=== PATIENT | male | born 1950 | race Caucasian/White ===

== ENCOUNTER → 2016-09-27 | Outpatient (CLI) | payer MEDICARE, OTHER ==
[2016-06-01 03:52] VITALS: BP 160/80
[~2016-09-27] MED LIST: ABIR250T PO; CALC1TAB75 PO; CHOL2000 PO; CIPR500T94 PO; DENO120V SQ; Fentanyl TD; GABA-585 PO; IOHEXOL 240 MG/ML 50ML VIAL. PO ONE; IOHEXOL 300 MG/ML 100ML VIAL. IV ONE; OXYC10TA PO; PRED2.5T PO; PROM25TA10 PO; Polyethylene Glycol 3350 PO; SENN8.8S4 PO; TAMS0.4C97 PO; [UNRECOGNIZED DRUG - CODE] IM
--- NOTE | 2016-09-27 10:07 | RAD ---
EXAM: Chest, abdomen and pelvis CT with intravenous contrast. HISTORY: Prostate cancer restaging. TECHNIQUE: Computed tomographic images of the chest, abdomen and pelvis were obtained following the administration of 30 cc Omnipaque 240 intravenous contrast. One or more of the following individualized dose reduction techniques were utilized for this examination: 1. Automated exposure control. 2. Adjustment of the mA and/or kV according to patient size. 3. Use of iterative reconstruction technique. COMPARISON: 05/20/2016. FINDINGS: Chest: There is a small left pleural effusion and trace right pleural effusion, both of which are new compared to the prior study. The heart is normal in size. There is coronary artery atherosclerosis. There is a prominent precarinal lymph node measuring 1.4 cm, minimally increased compared to the prior study. No hilar lymphadenopathy is seen. There is no pneumothorax. There is right posterior medial atelectasis likely due to prominent thoracic endplate osteophytes. No suspicious pulmonary nodule is seen. There is diffuse sclerotic osseous metastatic disease.. There is a marked to severe wedge compression fracture of T12, likely pathologic in etiology. Abdomen and pelvis: There is diffuse hepatic metastatic disease. The largest lesion measures 2.8 cm within the right hepatic lobe. The gallbladder, pancreas and spleen are unremarkable. There is a left adrenal mass measuring 3.2 cm, increased compared to the prior study and likely metastatic in etiology. There are bilateral nephroureteral stents. There has been slight interval decrease in previously demonstrated left hydronephrosis compared to the prior study. There is persistent bilateral urothelial thickening. The bladder is decompressed. There is no evidence of bowel obstruction. There is colonic diverticulosis without diverticulitis. There is retroperitoneal lymphadenopathy, increased compared to the prior study. There is also lymphadenopathy throughout the root of the mesentery, increased compared to the prior study. The largest lymph node conglomerate within the mesentery measures 4.0 cm. There is stranding throughout the retroperitoneum with encasement of the ureters and there is diffuse mesenteric stranding. There is diffuse osseous metastatic disease. There is multilevel degenerative change throughout the spine. IMPRESSION: 1. Diffuse hepatic metastatic disease, consistent with progressive malignancy. 2. Extensive retroperitoneal and mesenteric lymphadenopathy, also metastatic and increased compared to the prior study. 3. Diffuse sclerotic osseous metastatic disease. There is a moderate to severe T12 compression fracture which is similar compared to the prior study and possibly pathologic in etiology. 4. Slight interval decrease in left hydronephrosis status post bilateral nephroureteral stent placement. There is persistent stranding with suspected encasement of the ureters due to metastatic disease. 5. Small left and trace right pleural effusions, new compared to the prior study. 6. Minimal interval increase in a nonspecific precarinal lymph node measuring 1.4 cm. 7. Left adrenal metastasis, increased compared to the prior study.
== END | disposition home or self-care (01) ==
LOC: CT 07:20
PROVIDERS: ATTEND Internal Medicine Hematology & Oncology
DX: C61 Malignant neoplasm of prostate (principal)
CPT/HCPCS: 71260; 74177; Q9966; Q9967

== ENCOUNTER 2016-10-01 08:24 | Outpatient (CLI) | payer MEDICARE, OTHER ==
[~2016-10-01] VITALS: Ht 172.7 cm; Wt 80.7 kg
[~2016-10-01 08:24] MED LIST changes: -IOHEXOL 240 MG/ML 50ML VIAL. PO ONE; -IOHEXOL 300 MG/ML 100ML VIAL. IV ONE
[2016-10-01] MEDS ORDERED: OXYC40TA21 PO (08:44)
[2016-10-01] MEDS ORDERED: FURO20TA3 PO (08:44)
[2016-10-01] MEDS ORDERED: METO5TAB PO (08:44)
[2016-10-01] MEDS ORDERED: LISI10TA2 PO (08:44)
[2016-10-01] MEDS ORDERED: [UNRECOGNIZED DRUG - OTHER] PO (08:44)
[2016-10-01] MEDS ORDERED: CLIN300C86 PO (08:44)
[2016-10-01 09:04] VITALS: BP 150/79
[2016-10-01 09:22] LABS: BASO % 1 % (0-3); EOS % 4 % (0-3); HEMATOCRIT 33.1 % (39.0-53.0); HEMOGLOBIN 11.4 g/dL (13.0-17.5); LYMPH # 0.6 x10^3/uL (1.0-4.8); LYMPH % 18 % (24-48); MEAN CORPUSCULAR HEMOGLOBIN 30 pg (25-35); MEAN CORPUSCULAR HGB CONC 34 g/dL (31-37); MEAN CORPUSCULAR VOLUME 88 fL (79-100); MONO % 12 % (0-9); NEUT % 66 % (31-73); PLATELET COUNT 122 x10^3/uL (140-400); RED BLOOD COUNT 3.74 x10^6/uL (4.30-5.70); RED CELL DISTRIBUTION WIDTH 15.1 % (11.5-14.5); WHITE BLOOD COUNT 3.5 x10^3/uL (4.0-11.0)
[2016-10-01 09:31] LABS: INR 1.1 (0.8-1.1); PROTHROMBIN TIME PATIENT 13.3 SEC (11.7-14.0)
[2016-10-01] MEDS ORDERED: LIDOCAINE 1%/EPI 1:100,000 20 ML VIAL. ONE (09:48)
[2016-10-01] MEDS ORDERED: HEPARIN PF 500 UNIT/5 ML DISP.SYRIN. IV ONE ×2 (09:48→10:30)
[2016-10-01] MEDS ORDERED: VANCOMYCIN 1GM IVPB FOR OMNI 250 ML ONE (09:48)
[2016-10-01] MEDS ORDERED: CLINDAMYCIN 600MG PREMIX 50 ML IV ONE ×2 (10:05→10:30)
[2016-10-01] MEDS ORDERED: FENTANYL PF 100 MCG/2 ML VIAL. ONE ×2 (10:05→10:34)
[2016-10-01] MEDS ORDERED: MIDAZOLAM HCL 2 MG/2 ML VIAL. ONE ×2 (10:06→10:34)
[2016-10-01] MEDS ORDERED: LIDOCAINE 1%/EPI 1:100,000 20 ML VIAL. IJ ONE (10:30)
[2016-10-01] MEDS ORDERED: MIDAZOLAM HCL 2 MG/2 ML VIAL. IV ONE (10:30)
[2016-10-01] MEDS ORDERED: FENTANYL PF 100 MCG/2 ML VIAL. IV ONE (10:30)
[2016-10-01] MEDS ORDERED: VANCOMYCIN 1GM IVPB FOR OMNI 250 ML IV ONE (10:30)
[2016-10-01 10:46] VITALS: BP 125/64
--- NOTE | 2016-10-01 11:05 | PDOC ---
MODERATE SEDATION ASSESSMENT RISKS/ALTERNATIVES Risks/Alternatives Risks and alternatives of this type of sedation and procedure discussed with: RISK/ALTERNATIVES: Patient H & P ON CHART H & P H & P on chart and reviewed for co-morbid conditions and appropriate labs. H&P ON CHART: Yes STATUS PREG STATUS ASSESSED: N/A MEDS/ALLERGIES REVIEWED Meds/Allergies Reviewed Medications and Allergies including time and route of recently administered narcotics and sedatives. MEDS/ALLERGIES REVIEWED: Yes ASA RATING ASA RATING: III AIRWAY ASSESSMENT Airway Assessment Airway patency, oral function limitations, presence of caps, crowns, dentures, partials, and ability to extend neck assessed. AIRWAY ASSESSMENT: Yes MALLAMPATI SCORE MALLAMPATI SCORE: II PRE-SEDATION ASSESSMENT PRE-SEDATION ASSESSMENT: Yes TUAN HERNANDEZ MD Oct 01, 2016 11:05
--- NOTE | 2016-10-01 11:07 | PDOC1 ---
History and Physical Date of Procedure Date of Admission 10/01/16 Procedure Procedure Sono/fluoro guided Power Port insertion Indication Indication Metastatic prostate cancer---Port requested for chemotx Past Medical History Past Medical History See Nursing Pre procedure PMH Past Surgical History Past Surgical History See Nursing Pre procedure PSH Current Medications Current Medications Current Medications Heparin Sodium (Porcine) (Hep Lock Adult) 500 unit STK-MED ONCE IV ; Start 10/01 at 09:48; Stop 10/01/16 at 09:49; Status DC Lidocaine/ Epinephrine 20 ml 20 ml STK-MED ONCE .ROUTE ; Start 10/01/16 at 09:48 ; Stop 10/01/16 at 09:49; Status DC Heparin Sodium/ Sodium Chloride 500 ml @ As Directed STK-MED ONCE .ROUTE ; Start 10/01/16 at 09:48; Stop 10/01/16 at 09:49; Status DC Vancomycin HCl 250 ml @ As Directed STK-MED ONCE .ROUTE ; Start 10/01/16 at 09: 48; Stop 10/01/16 at 09:49; Status DC Clindamycin Phosphate (Cleocin 600 Mg Premix) 50 ml @ As Directed STK-MED ONCE IV ; Start 10/01/16 at 10:05; Stop 10/01/16 at 10:06; Status DC Fentanyl Citrate (Fentanyl 2ml Vial) 100 mcg STK-MED ONCE .ROUTE ; Start at 10:05; Stop 10/01/16 at 10:06; Status DC Midazolam HCl (Versed) 2 mg STK-MED ONCE .ROUTE ; Start 10/01/16 at 10:06; Stop 10/01/16 at 10:07; Status DC Fentanyl Citrate (Fentanyl 2ml Vial) 100 mcg STK-MED ONCE .ROUTE ; Start at 10:34; Stop 10/01/16 at 10:35; Status DC Midazolam HCl (Versed) 2 mg STK-MED ONCE .ROUTE ; Start 10/01/16 at 10:34; Stop 10/01/16 at 10:35; Status DC Heparin Sodium/ Sodium Chloride 1,000 unit 1X ONCE IART Last administered on t 10:30; Start 10/01/16 at 10:30; Stop 10/01/16 at 10:52; Status DC Midazolam HCl (Versed) 2 mg 1X ONCE IV Last administered on 10/01/16 10:30; Start 10/01/16 at 10:30; Stop 10/01/16 at 10:52; Status DC Fentanyl Citrate (Fentanyl 2ml Vial) 100 mcg 1X ONCE IV Last administered on 10:30; Start 10/01/16 at 10:30; Stop 10/01/16 at 10:52; Status DC Heparin Sodium (Porcine) 500 unit 500 unit 1X ONCE IV ; Start 10/01/16 at 10:30 ; Stop 10/01/16 at 10:52; Status DC Clindamycin Phosphate (Cleocin 600 Mg Premix) 50 ml @ 100 mls/hr 1X ONCE IV Last administered on 10/01/16 10:25; Start 10/01/16 at 10:30; Stop 10/01/16 at 10:59; Status DC Lidocaine/ Epinephrine 20 ml 20 ml 1X ONCE IJ Last administered on 10/01/16 10:30; Start 10/01/16 at 10:30; Stop 10/01/16 at 10:52; Status DC Vancomycin HCl 250 ml @ 250 mls/hr 1X ONCE IV Last administered on 10/01/16 10:47; Start 10/01/16 at 10:30; Stop 10/01/16 at 11:29 Active Scripts Active [Polyethylene Glycol 3350] 17 GM Packet 17 Gm PO BID Reported Furosemide 20 Mg Tablet 20 Mg PO DAILY Lisinopril 10 Mg Tablet 10 Mg PO DAILY Metoclopramide Hcl 5 Mg Tablet 5 Mg PO TID PRN PRN [floragen probiotic] PO DAILY 30 Days Clindamycin Hcl 300 Mg Capsule 300 Mg PO TID 7 Days Oxycontin (Oxycodone HCl) 40 Mg Tab.er.12h 40 Mg PO BID Calcium 600 + Vit D 200 Tablet (Calcium Carbonate/Vitamin D3) 1 Each Tablet 1 Each PO DAILY Vitamin D (Cholecalciferol (Vitamin D3)) 2,000 Unit Capsule 5,000 Unit PO DAILY Xgeva (Denosumab) 120 Mg/1.7 Ml Vial 120 Mg SQ Q4WK Lupron Depot (Leuprolide Acetate) 11.25 Mg Syringekit 11.25 Mg IM Allergies Allergies: Coded Allergies: acetaminophen (Unverified Allergy, Intermediate, redness and itching, ) Physical Exam Vital Signs Vital Signs Date Time Temp Pulse Resp B/P Pulse Ox O2 Delivery O2 Flow Rate FiO2 10/01/16 10:46 61 26 100 Nasal Cannula 2.0 10/01/16 09:04 98.3 150/79 98.3 Lungs: Clear to auscultation Heart: Regular rate Psych/Mental Status: Mental status NL Assessment Assessment Prostate cancer, with extensive bone mets Problems: Plan Plan Power Port insertion for chemotx TUAN HERNANDEZ MD Oct 01, 2016 11:07
--- NOTE | 2016-10-01 11:10 | PDOC ---
Exam Staff Reporter Staff Reporter Nasrin Head Bookkeeper Head Bookkeeper Jesse Cain Pre-Procedure Diagnosis Pre-Procedure Diagnosis Metastatic prostate cancer Post-Procedure Diagnosis Post-Procedure Diagnosis Same Procedure Performed Procedure Performed Image guided Power Port insertion Type of Anesthesia Type of Anesthesia Local + Mod sedation Estimated Blood Loss EBL: Minimal Drain/Tubes Drains/Tubes 8F rt IJ tunneled Power Port Condition of Patient Condition of Patient Stable. No apparent complication. Disposition Disposition Home from [facility] post recovery, if no problems. F/u with Dr Davies. OK to use Power Port. Full report to follow. TUAN HERNANDEZ MD Oct 01, 2016 11:10
[2016-10-01 11:25] VITALS: BP 133/70
[2016-10-01 11:40] VITALS: BP 142/73
[2016-10-01 11:54] VITALS: BP 148/89
[2016-10-01 12:05] VITALS: BP 139/72
--- NOTE | 2016-10-01 14:16 | RAD ---
Ultrasound and fluoroscopy guided right IJ power port insertion Indication: 66-year-old male with prostate carcinoma and extensive, widespread blastic osseous metastases. Power port insertion requested by oncology for chemotherapy. Fluoroscopy time: 1.6 minutes Kerma-area product: 4 Gycm2 Moderate sedation: 36 minutes moderate sedation was provided utilizing a total of 3 mg Versed and 150 mcg fentanyl, IV. The patient was appropriately monitored by a qualified independent observer throughout the course of moderate sedation. Antibiotic: A single dose of Clindamycin was administered within 1 hour of the procedure start time. Clindamycin was selected for additional prophylactic antibiotic coverage since the patient was already receiving scheduled by mouth clindamycin. Sterility: All elements of maximal sterile barrier technique, including the use of a cap, mask, sterile gown, sterile gloves, large sterile sheet, appropriate hand hygiene, and 2% chlorhexidine for cutaneous antisepsis (or acceptable alternative antiseptic per current guidelines) were utilized. Procedure: Informed consent was obtained from the patient. He was placed supine on the angiography table. Preliminary ultrasound examination of right neck revealed wide patency of right internal jugular vein, which was documented with a single hard copy ultrasound image. Right neck and upper chest were then prepped and draped in the usual sterile fashion, utilizing all elements of maximal sterile barrier technique, as described above. Moderate sedation was provided with IV Versed and fentanyl. 1 g Ancef was given IV, prophylactically. Using aseptic technique and local anesthesia, a small skin incision was made lateral to right internal jugular vein, just above clavicle. Using aseptic technique, local anesthesia, direct ultrasound guidance, and the micropuncture system, successful percutaneous entry was achieved into right internal jugular vein. The right IJ venostomy tract was then dilated and the 8 Welsh catheter from a Bard power port system was easily advanced centrally through an 8.5 Welsh peel-away sheath, and was positioned with this tip at the level of upper right atrium utilizing fluoroscopic guidance. A skin site suitable for placement of the power port body was then selected and marked along upper anterior aspect of right chest, overlying anterior aspect of right second rib. Using aseptic technique and local anesthesia, a horizontally oriented skin incision was made in this location. A subcutaneous chest wall pocket was then created and was packed with vancomycin soaked gauze. A subcutaneous tunnel was then fashioned between the chest wall pocket and the initial supraclavicular incision. The 8 Welsh power port catheter was then pulled through the subcutaneous tunnel from superior to inferior, utilizing the tunneling device provided. The catheter was then trimmed to an appropriate length and was connected to the power port body, which had been previously flushed with, and soaked in, vancomycin solution. The vancomycin soaked gauze was then removed from the chest wall pocket, which was then copiously irrigated with vancomycin solution. The power port body was then easily introduced into the chest wall pocket and was secured in place utilizing two 2-0 Vicryl sutures. The power port was then accessed utilizing a Florez needle, was documented to flush and aspirate normally, and was packed with heparinized saline. The chest incision was then closed with 2-0 Vicryl, 4-0 Vicryl, Steri-Strips, and sterile dressing. The small supraclavicular incision was closed with 4-0 Vicryl, Steri-Strips, and sterile dressing. Patient tolerated the procedure well without apparent complication. Satisfactory position of the power port was confirmed with a single fluoroscopic spot image. Impression: Successful, uneventful ultrasound and fluoroscopy guided placement of right IJ 8 Welsh tunneled power port, as described.
== END 2016-10-01 12:15 | disposition home or self-care (01) ==
LOC: INTRAD 08:24
PROVIDERS: ATTEND Internal Medicine Hematology & Oncology
DX: Z51.11 Encounter for antineoplastic chemotherapy (principal); C61 Malignant neoplasm of prostate; I10 Essential (primary) hypertension; M19.90 Unspecified osteoarthritis, unspecified site
CPT/HCPCS: 36415; 36561; 76937; 77001; 85027; 85610; C1751; C1892; J2250; J3010; J3370; J3490

== ENCOUNTER 2016-10-15 16:02 | Inpatient (IN) | payer MEDICARE, OTHER ==
[~2016-10-15] VITALS: Ht 172.7 cm; Wt 80.5 kg
[~2016-10-15 16:02] MED LIST changes: +CLIN300C86 PO; +FURO20TA3 PO; +LISI10TA2 PO; +METO5TAB PO; +OXYC40TA21 PO; +[UNRECOGNIZED DRUG - OTHER] PO
[2016-10-15] MEDS ORDERED: IV NORMAL SALINE 1000ML BAG 1,000 ML IV ONE ×2 (16:45→18:15)
[2016-10-15] MEDS ORDERED: IBUPROFEN 600 MG TABLET. PO ONE (16:45)
--- NOTE | 2016-10-15 16:46 | RAD ---
Portable chest, 10/15/2016, 4:39 PM: History: Fever, weakness A right Port-A-Cath extends into the superior vena cava. The heart size and pulmonary vascularity are normal. No pulmonary infiltrates are seen. There is no evidence of pleural fluid. Extensive patchy sclerotic foci are seen in the bones compatible with blastic metastatic disease. The given history is that of prostate cancer. IMPRESSION: 1. A right Port-A-Cath is in satisfactory position. 2. Extensive multifocal blastic osseous metastatic disease. 3. No acute cardiopulmonary abnormality is detected.
[2016-10-15] MEDS ORDERED: 0.9 % SOD CHL for STERILE FIELD 10 ML DISP.SYRIN. ONE (16:47)
[2016-10-15] MEDS ORDERED: MEROPENEM 1 GM in IV NORMAL SALINE 100ML 100 ML IV ONE (17:00)
[2016-10-15] MEDS ORDERED: LIDOCAINE 1% / SOD BICARB 8.4% 20 ML VIAL. IJ ONE (17:00)
[2016-10-15] MEDS ORDERED: VANCOMYCIN 2 GM in IV NORMAL SALINE 500ML BAG 500 ML IV ONE (17:00)
[2016-10-15 17:48] LABS: CALCIUM 8.1 mg/dL (8.5-10.1); CREATININE 1.1 mg/dL (0.7-1.3); POTASSIUM 3.7 mmol/L (3.5-5.1)
[2016-10-15 17:54] LABS: ALBUMIN 2.5 g/dL (3.4-5.0); ALBUMIN/GLOBULIN RATIO 0.8 (1.0-1.7); TOTAL BILIRUBIN 0.6 mg/dL (0.2-1.0); TOTAL PROTEIN 5.6 g/dL (6.4-8.2)
[2016-10-15 18:10] LABS: BASO % 0 % (0-3); EOS % 0 % (0-3); HEMATOCRIT 26.1 % (39.0-53.0); HEMOGLOBIN 8.9 g/dL (13.0-17.5); LYMPH # 0.1 x10^3/uL (1.0-4.8); LYMPH % 25 % (24-48); MEAN CORPUSCULAR HEMOGLOBIN 30 pg (25-35); MEAN CORPUSCULAR HGB CONC 34 g/dL (31-37); MEAN CORPUSCULAR VOLUME 88 fL (79-100); MONO % 69 % (0-9); NEUT % 5 % (31-73); PLATELET COUNT 103 x10^3/uL (140-400); RED BLOOD COUNT 2.97 x10^6/uL (4.30-5.70); RED CELL DISTRIBUTION WIDTH 14.8 % (11.5-14.5)
[2016-10-15 18:26] LABS: INR 1.4 (0.8-1.1); PROTHROMBIN TIME PATIENT 16.4 SEC (11.7-14.0)
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
[2016-10-15] MEDS ORDERED: ONDANSETRON PF 4 MG/2 ML VIAL. IV PRN (18:45)
[2016-10-15] MEDS ORDERED: MORPHINE SULFATE 4 MG/ML DISP.SYRIN. IV PRN (18:45)
[2016-10-15] MEDS ORDERED: IBUPROFEN 600 MG TABLET. PO PRN (18:45)
[2016-10-15 19:10] LABS: WHITE BLOOD COUNT 0.4 x10^3/uL (4.0-11.0)
[2016-10-15 19:36] LABS: BILIRUBIN,URINE NEGATIVE (NEG); GLUCOSE,URINE NEGATIVE (NEG); NITRITE,URINE NEGATIVE (NEG); PH,URINE 6.5; UROBILINOGEN,URINE 0.2 mg/dL (0.2 mg/dL)
[2016-10-15 20:01] LABS: PROTEIN,URINE NEGATIVE (NEG-TRACE)
[2016-10-15 20:03] LABS: BACTERIA,URINE 0 /HPF (0-FEW); SQUAMOUS EPITHELIAL CELL,UR OCC /LPF; WBC,URINE 0 /HPF (0-4)
[2016-10-15 20:45] VITALS: BP 116/64
[2016-10-15] MEDS: VANCOMYCIN PER PHARMACY MC PRN (20:46)
[2016-10-15] MEDS ORDERED: FENTANYL PF 100 MCG/2 ML VIAL. IV PRN (22:30)
[2016-10-15] MEDS ORDERED: FENTANYL 75MCG/HR PATCH. TD ONE (23:00)
[2016-10-15] MEDS: IV NORMAL SALINE 1000ML BAG 1,000 ML IV SCH (23:31)
[2016-10-15] MEDS: MEROPENEM 1 GM in IV NORMAL SALINE 100ML 100 ML IV SCH (23:31)
[2016-10-15 23:59] VITALS: BP 112/54
[2016-10-16] MEDS: IV NORMAL SALINE 1000ML BAG 1,000 ML IV SCH ×3 (01:17→14:37)
[2016-10-16 03:00] VITALS: BP 113/69
[2016-10-16] MEDS: MEROPENEM 1 GM in IV NORMAL SALINE 100ML 100 ML IV SCH ×3 (05:22→21:14)
[2016-10-16] MEDS: VANCOMYCIN 1.25 GM in IV NORMAL SALINE 250ML 250 ML IV SCH ×2 (05:23→17:33)
[2016-10-16 07:00] VITALS: BP 108/53
[2016-10-16] MEDS ORDERED: PRED5TAB (10:17)
[2016-10-16] MEDS ORDERED: DEXA4TAB (10:17)
[2016-10-16] MEDS ORDERED: FENT1PAT19 TD (10:17)
[2016-10-16 11:00] VITALS: BP 123/68
[2016-10-16] MEDS ORDERED: FUROSEMIDE 20 MG TABLET PO PRN (11:15)
[2016-10-16] MEDS ORDERED: METOCLOPRAMIDE 5 MG TABLET PO PRN (11:15)
[2016-10-16] MEDS ORDERED: POLYETHYLENE GLYCOL 3350 17 GM PACKET. PO PRN (11:15)
--- NOTE | 2016-10-16 11:32 | PDOC ---
Infectious Disease Note Vital Sign Vital Signs Vital Signs Date Time Temp Pulse Resp B/P Pulse Ox O2 Delivery O2 Flow Rate FiO2 10/16/16 07:00 97.5 62 14 108/53 96 Room Air 97.5 Labs Lab Laboratory Tests Test 10/15/16 17:20 10/15/16 17:40 10/15/16 19:00 10/15/16 19:15 White Blood Count 0.4x10^3/uL (4.0-11.0) Red Blood Count 2.97x10^6/uL (4.30-5.70) Hemoglobin 8.9g/dL (13.0-17.5) Hematocrit 26.1% (39.0-53.0) Mean Corpuscular Volume 88fL (79-100) Mean Corpuscular Hemoglobin 30pg (25-35) Mean Corpuscular Hemoglobin Concent 34g/dL (31-37) Red Cell Distribution Width 14.8% (11.5-14.5) Platelet Count 103x10^3/uL (140-400) Neutrophils (%) (Auto) 5% (31-73) Lymphocytes (%) (Auto) 25% (24-48) Monocytes (%) (Auto) 69% (0-9) Eosinophils (%) (Auto) 0% (0-3) Basophils (%) (Auto) 0% (0-3) Neutrophils # (Auto) 0.0x10^3uL (1.8-7.7) Lymphocytes # (Auto) 0.1x10^3/uL (1.0-4.8) Monocytes # (Auto) 0.3x10^3/uL (0.0-1.1) Eosinophils # (Auto) 0.0x10^3/uL (0.0-0.7) Basophils # (Auto) 0.0x10^3/uL (0.0-0.2) Sodium Level 139mmol/L (136-145) Potassium Level 3.7mmol/L (3.5-5.1) Chloride Level 102mmol/L (98-107) Carbon Dioxide Level 29mmol/L (21-32) Anion Gap 8 (6-14) Blood Urea Nitrogen 18mg/dL (8-26) Creatinine 1.1mg/dL (0.7-1.3) Estimated GFR (Cockcroft-Gault) 67.0 BUN/Creatinine Ratio 16 (6-20) Glucose Level 143mg/dL (70-99) Lactic Acid Level 2.4mmol/L (0.4-2.0) 2.8mmol/L (0.4-2.0) Calcium Level 8.1mg/dL (8.5-10.1) Total Bilirubin 0.6mg/dL (0.2-1.0) Aspartate Amino Transf (AST/SGOT) 36U/L (15-37) Alanine Aminotransferase (ALT/SGPT) 23U/L (16-63) Alkaline Phosphatase 82U/L (46-116) Total Protein 5.6g/dL (6.4-8.2) Albumin 2.5g/dL (3.4-5.0) Albumin/Globulin Ratio 0.8 (1.0-1.7) Lipase 93U/L (73-393) Prothrombin Time 16.4SEC (11.7-14.0) Prothromb Time International Ratio 1.4 (0.8-1.1) Urine Collection Type Unknown Urine Color Yellow Urine Clarity Clear Urine pH 6.5 Urine Specific [place] 1.015 Urine Protein Negativemg/dL (NEG-TRACE) Urine Glucose (UA) Negativemg/dL (NEG) Urine Ketones (Stick) Negativemg/dL (NEG) Urine Blood Small (NEG) Urine Nitrite Negative (NEG) Urine Bilirubin Negative (NEG) Urine Urobilinogen Dipstick 0.2mg/dL (0.2 mg/dL) Urine Leukocyte Esterase Negative (NEG) Urine RBC 6-10/HPF (0-2) Urine WBC 0/HPF (0-4) Urine Squamous Epithelial Cells Occ/LPF Urine Bacteria 0/HPF (0-FEW) Test 10/15/16 21:00 Lactic Acid Level 2.5mmol/L (0.4-2.0) Objective Assessment Sepsis with lactic acidosis. POA Neutropenic fever Abscess left groin. -Seven day course of clindamycin, 2 weeks ago, minimal improvement, now worse Met adenocarcinoma of prostate -s/p chemo on 10/06. = steroids -s/p port-a-cath placement, 10/01 h/o bilat hydronephrosis s/p stent Plan Plan of Care Vanc and Meropenem May need I & D Await BC Monitor counts and temp Await onc eval D/w Thank you [id number] Attending Co-Sign The patient was seen and interviewed as well as examined at the bedside. The chart was reviewed. The case was discussed. Agree with the plan of care. BROOKS ZAMBRANO APRN Oct 16, 2016 11:32 ROB JOHN MD Oct 16, 2016 16:08
--- NOTE | 2016-10-16 12:06 | PDOC2 ---
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 Had some rigors at home and temp on 10/15 was 103 Presented to ER and has been admitted he has some skin lesions left groin for about a month - recent clindamycin Currently on vanc, meropenem and was neutropenic, overall is feeling a little better Past Medical History Musculoskeletal: low back pain, Osteoarthritis Past Surgical History Past Surgical History uereteral stent Family History Family History: Cancer, Diabetes, Other (RA) Social History No ALCOHOL: none Lives: with Family Current Problem List Problem List Problems Medical Problems: (1) Febrile neutropenia Status: Acute Current Medications Current Medications Current Medications Sodium Chloride (Iv Sodium Chloride 0.9% 1000ml Bag) 1,000 ml @ 1,000 mls/hr 1X ONCE IV Last administered on 10/15/16 17:32; Start 10/15/16 at 16:45; Stop 10/15/16 at 17:44; Status DC Ibuprofen (Motrin) 600 mg 1X ONCE PO Last administered on 10/15/16 16:44; Start 10/15/16 at 16:45; Stop 10/15/16 at 16:46; Status DC Lidocaine/Sodium Bicarbonate (Buffered Lidocaine 1%) 2 ml 1X ONCE IJ ; Start at 17:00; Stop 10/15/16 at 17:01; Status DC Vancomycin HCl 1 each 1 each PRN DAILY PRN MC SEE COMMENTS Last administered on 10/15/16 20:46; Start 10/15/16 at 16:45 Meropenem 1 gm/ Sodium Chloride 100 ml @ 200 mls/hr Q8HRS IV Last administered on 10/16/16 05:22; Start 10/16/16 at 00:00 Vancomycin HCl 2 gm/Sodium Chloride 500 ml @ 250 mls/hr 1X ONCE IV Last administered on 10/15/16 19:00; Start 10/15/16 at 17:00; Stop 10/15/16 at 18:59 ; Status DC Meropenem/Sodium Chloride (Merrem/Iv Sodium Chloride 0.9% 100ml) 100 ml @ 200 mls/hr 1X ONCE IV Last administered on 10/15/16 17:50; Start 10/15/16 at 17: 00; Stop 10/15/16 at 17:29; Status DC Sodium Chloride 10 ml 10 ml STK-MED ONCE .ROUTE ; Start 10/15/16 at 16:47; Stop 10/15/16 at 16:48; Status DC Sodium Chloride (Iv Sodium Chloride 0.9% 1000ml Bag) 1,000 ml @ 1,000 mls/hr 1X ONCE IV ; Start 10/15/16 at 18:15; Stop 10/15/16 at 19:14; Status DC Ondansetron HCl (Zofran) 4 mg PRN Q8HRS PRN IV NAUSEA/VOMITING; Start 10/15/16 at 18:45; Stop 10/16/16 at 18:44 Morphine Sulfate 4 mg 4 mg PRN Q2HR PRN IV PAIN; Start 10/15/16 at 18:45; Stop 10/16/16 at 00:42; Status DC Sodium Chloride (Iv Sodium Chloride 0.9% 1000ml Bag) 1,000 ml @ 150 mls/hr Q6H40M IV Last administered on 10/16/16 11:03; Start 10/15/16 at 18:37; Stop 10/16/16 at 18:36 Ibuprofen 600 mg 600 mg PRN Q6HRS PRN PO FEVER > 100.5'F; Start 10/15/16 at 18: 45 Vancomycin HCl/ Sodium Chloride (Iv Sodium Chloride 0.9% 250ml) 250 ml @ 167 mls/hr Q12H IV Last administered on 10/16/16 05:23; Start 10/16/16 at 07:00 Vancomycin HCl 1 each 1X ONCE MC ; Start 10/17/16 at 06:30; Stop 10/17/16 at 06 :31 Fentanyl (Duragesic 75mcg/ Hr Patch) 1 patch Q3DAYS TD ; Start 10/18/16 at 09:00 Fentanyl Citrate (Fentanyl 2ml Vial) 75 mcg PRN Q3HRS PRN IV BREAKTHROUGH PAIN ; Start 10/15/16 at 22:30 Fentanyl (Duragesic 75mcg/ Hr Patch) 1 patch ONCE ONCE TD Last administered on 10/15/16t 23:33; Start 10/15/16 at 23:00; Stop 10/15/16 at 23:01; Status DC Prednisone (Prednisone) 5 mg BID PO ; Start 10/16/16 at 12:00 Lactobacillus Acidophilus (Bacid, Layla-Bid) 1 tab DAILY PO ; Start 10/16/16 at 12:00 Metoclopramide HCl (Reglan) 5 mg TID PRN PRN PO NAUSEA/VOMITING; Start at 11:15 Furosemide (Lasix) 20 mg PRN DAILY PRN PO as needed for swelling; Start at 11:15 Polyethylene Glycol (miraLAX PACKET) 17 gm PRN DAILY PRN PO CONSTIPATION; Start 10/16/16 at 11:15 Vitamin D (Vitamin D3) 5,000 unit DAILY PO ; Start 10/16/16 at 12:00 Calcium Carbonate/ Glycine (Oscal) 500 mg DAILY PO ; Start 10/16/16 at 12:00 Active Scripts Active [Polyethylene Glycol 3350] 17 GM Packet 17 Gm PO BID Reported FENTANYL 75mcg/hr (Fentanyl) 1 Each Patch.td72 75 Mcg TD Q3DAYS Prednisone 5 Mg Tablet 5 Mg BID Dexamethasone 4 Mg Tablet Furosemide 20 Mg Tablet 20 Mg PO DAILY Lisinopril 10 Mg Tablet 10 Mg PO DAILY Metoclopramide Hcl 5 Mg Tablet 5 Mg PO TID PRN PRN [floragen probiotic] PO DAILY 30 Days Clindamycin Hcl 300 Mg Capsule 300 Mg PO TID 7 Days Oxycontin (Oxycodone HCl) 40 Mg Tab.er.12h 40 Mg PO BID Calcium 600 + Vit D 200 Tablet (Calcium Carbonate/Vitamin D3) 1 Each Tablet 1 Each PO DAILY Vitamin D (Cholecalciferol (Vitamin D3)) 2,000 Unit Capsule 5,000 Unit PO DAILY Xgeva (Denosumab) 120 Mg/1.7 Ml Vial 120 Mg SQ Q4WK Lupron Depot (Leuprolide Acetate) 11.25 Mg Syringekit 11.25 Mg IM Allergies Allergies: Coded Allergies: acetaminophen (Unverified Allergy, Intermediate, redness and itching, 9/6/ 16) ROS General: YES: Chills, Fatigue, Malaise, Night Sweats Musculoskeletal: Yes Other (chronic low back pain, not changed) Skin: Yes Rash, Yes Skin Lesion Changes Physical Exam General: Alert, Cooperative, No acute distress HEENT: Atraumatic, PERRLA, Mucous membr. moist/pink Lungs: Clear to auscultation Heart: Regular rate, Normal S1, Normal S2 Abdomen: Normal bowel sounds, Soft, No tenderness Extremities: No clubbing, No cyanosis, No edema Skin: Other (has multiple skin lesions left groin/pubic area - larger 3 cm or so nodular lesion with some skin breakdown, the others are smaller, but nodular areas) Neuro: Normal speech, Normal tone, Cranial nerves 3-12 NL Psych/Mental Status: Mental status NL MUSCULOSKELETAL: No swelling Vitals VITALS Vital Signs Date Time Temp Pulse Resp B/P Pulse Ox O2 Delivery O2 Flow Rate FiO2 10/16/16 07:00 97.5 62 14 108/53 96 Room Air 97.5 Labs Labs Laboratory Tests Test 10/15/16 17:20 10/15/16 17:40 10/15/16 19:00 10/15/16 19:15 White Blood Count 0.4x10^3/uL (4.0-11.0) Red Blood Count 2.97x10^6/uL (4.30-5.70) Hemoglobin 8.9g/dL (13.0-17.5) Hematocrit 26.1% (39.0-53.0) Mean Corpuscular Volume 88fL (79-100) Mean Corpuscular Hemoglobin 30pg (25-35) Mean Corpuscular Hemoglobin Concent 34g/dL (31-37) Red Cell Distribution Width 14.8% (11.5-14.5) Platelet Count 103x10^3/uL (140-400) Neutrophils (%) (Auto) 5% (31-73) Lymphocytes (%) (Auto) 25% (24-48) Monocytes (%) (Auto) 69% (0-9) Eosinophils (%) (Auto) 0% (0-3) Basophils (%) (Auto) 0% (0-3) Neutrophils # (Auto) 0.0x10^3uL (1.8-7.7) Lymphocytes # (Auto) 0.1x10^3/uL (1.0-4.8) Monocytes # (Auto) 0.3x10^3/uL (0.0-1.1) Eosinophils # (Auto) 0.0x10^3/uL (0.0-0.7) Basophils # (Auto) 0.0x10^3/uL (0.0-0.2) Sodium Level 139mmol/L (136-145) Potassium Level 3.7mmol/L (3.5-5.1) Chloride Level 102mmol/L (98-107) Carbon Dioxide Level 29mmol/L (21-32) Anion Gap 8 (6-14) Blood Urea Nitrogen 18mg/dL (8-26) Creatinine 1.1mg/dL (0.7-1.3) Estimated GFR (Cockcroft-Gault) 67.0 BUN/Creatinine Ratio 16 (6-20) Glucose Level 143mg/dL (70-99) Lactic Acid Level 2.4mmol/L (0.4-2.0) 2.8mmol/L (0.4-2.0) Calcium Level 8.1mg/dL (8.5-10.1) Total Bilirubin 0.6mg/dL (0.2-1.0) Aspartate Amino Transf (AST/SGOT) 36U/L (15-37) Alanine Aminotransferase (ALT/SGPT) 23U/L (16-63) Alkaline Phosphatase 82U/L (46-116) Total Protein 5.6g/dL (6.4-8.2) Albumin 2.5g/dL (3.4-5.0) Albumin/Globulin Ratio 0.8 (1.0-1.7) Lipase 93U/L (73-393) Prothrombin Time 16.4SEC (11.7-14.0) Prothromb Time International Ratio 1.4 (0.8-1.1) Urine Collection Type Unknown Urine Color Yellow Urine Clarity Clear Urine pH 6.5 Urine Specific [place] 1.015 Urine Protein Negativemg/dL (NEG-TRACE) Urine Glucose (UA) Negativemg/dL (NEG) Urine Ketones (Stick) Negativemg/dL (NEG) Urine Blood Small (NEG) Urine Nitrite Negative (NEG) Urine Bilirubin Negative (NEG) Urine Urobilinogen Dipstick 0.2mg/dL (0.2 mg/dL) Urine Leukocyte Esterase Negative (NEG) Urine RBC 6-10/HPF (0-2) Urine WBC 0/HPF (0-4) Urine Squamous Epithelial Cells Occ/LPF Urine Bacteria 0/HPF (0-FEW) Test 10/15/16 21:00 Lactic Acid Level 2.5mmol/L (0.4-2.0) Laboratory Tests Test 10/15/16 17:20 10/15/16 17:40 10/15/16 19:00 10/15/16 19:15 White Blood Count 0.4x10^3/uL (4.0-11.0) Red Blood Count 2.97x10^6/uL (4.30-5.70) Hemoglobin 8.9g/dL (13.0-17.5) Hematocrit 26.1% (39.0-53.0) Mean Corpuscular Volume 88fL (79-100) Mean Corpuscular Hemoglobin 30pg (25-35) Mean Corpuscular Hemoglobin Concent 34g/dL (31-37) Red Cell Distribution Width 14.8% (11.5-14.5) Platelet Count 103x10^3/uL (140-400) Neutrophils (%) (Auto) 5% (31-73) Lymphocytes (%) (Auto) 25% (24-48) Monocytes (%) (Auto) 69% (0-9) Eosinophils (%) (Auto) 0% (0-3) Basophils (%) (Auto) 0% (0-3) Neutrophils # (Auto) 0.0x10^3uL (1.8-7.7) Lymphocytes # (Auto) 0.1x10^3/uL (1.0-4.8) Monocytes # (Auto) 0.3x10^3/uL (0.0-1.1) Eosinophils # (Auto) 0.0x10^3/uL (0.0-0.7) Basophils # (Auto) 0.0x10^3/uL (0.0-0.2) Sodium Level 139mmol/L (136-145) Potassium Level 3.7mmol/L (3.5-5.1) Chloride Level 102mmol/L (98-107) Carbon Dioxide Level 29mmol/L (21-32) Anion Gap 8 (6-14) Blood Urea Nitrogen 18mg/dL (8-26) Creatinine 1.1mg/dL (0.7-1.3) Estimated GFR (Cockcroft-Gault) 67.0 BUN/Creatinine Ratio 16 (6-20) Glucose Level 143mg/dL (70-99) Lactic Acid Level 2.4mmol/L (0.4-2.0) 2.8mmol/L (0.4-2.0) Calcium Level 8.1mg/dL (8.5-10.1) Total Bilirubin 0.6mg/dL (0.2-1.0) Aspartate Amino Transf (AST/SGOT) 36U/L (15-37) Alanine Aminotransferase (ALT/SGPT) 23U/L (16-63) Alkaline Phosphatase 82U/L (46-116) Total Protein 5.6g/dL (6.4-8.2) Albumin 2.5g/dL (3.4-5.0) Albumin/Globulin Ratio 0.8 (1.0-1.7) Lipase 93U/L (73-393) Prothrombin Time 16.4SEC (11.7-14.0) Prothromb Time International Ratio 1.4 (0.8-1.1) Urine Collection Type Unknown Urine Color Yellow Urine Clarity Clear Urine pH 6.5 Urine Specific [place] 1.015 Urine Protein Negativemg/dL (NEG-TRACE) Urine Glucose (UA) Negativemg/dL (NEG) Urine Ketones (Stick) Negativemg/dL (NEG) Urine Blood Small (NEG) Urine Nitrite Negative (NEG) Urine Bilirubin Negative (NEG) Urine Urobilinogen Dipstick 0.2mg/dL (0.2 mg/dL) Urine Leukocyte Esterase Negative (NEG) Urine RBC 6-10/HPF (0-2) Urine WBC 0/HPF (0-4) Urine Squamous Epithelial Cells Occ/LPF Urine Bacteria 0/HPF (0-FEW) Test 10/15/16 21:00 Lactic Acid Level 2.5mmol/L (0.4-2.0) Assessment/Plan Assessment/Plan 1. Met prostate cancer - castrate resistant. His disease has behaved in very aggressive/resistant manner and just had 1st cycle of taxotere on 10/06 I am concerned these skin lesions are disease and when able - counts better, may be prudent to biopsy 2. Neutropenic fever, no clear source, but these skin lesions could be portal currently on vanc/meropenem CXR neg - have not seen cuture report would like to add neupogen at present and follow counts daily RONNIE FIELDS MD Oct 16, 2016 12:06
[2016-10-16] MEDS: LACTOBACILLUS ACIDOPH & BULGAR 1 TABLET. PO SCH (12:40)
[2016-10-16] MEDS: PREDNISONE 5 MG TABLET PO SCH ×2 (12:41→21:14)
[2016-10-16] MEDS: CALCIUM CARBONATE 500 MG TABLET PO SCH (12:41)
[2016-10-16] MEDS: CHOLECALCIFEROL (VITAMIN D3) 5,000 UNIT CAPSULE PO SCH (13:02)
--- NOTE | 2016-10-16 13:52 | PDOC ---
OBJECTIVE Vital Signs Vital Signs Date Time Temp Pulse Resp B/P Pulse Ox O2 Delivery O2 Flow Rate FiO2 10/16/16 11:00 96.6 70 14 123/68 98 Room Air 96.6 10/16/16 07:00 97.5 62 14 108/53 96 Room Air 97.5 10/16/16 03:33 18 Room Air 10/16/16 03:00 98.0 63 18 113/69 97 Room Air 98.0 10/15/16 23:59 98.1 67 18 112/54 97 Room Air 98.1 10/15/16 23:33 18 Room Air 10/15/16 20:45 100.0 66 18 116/64 94 Room Air 100.0 10/15/16 20:30 Room Air 10/15/16 20:09 81 19 121/58 96 Room Air 10/15/16 19:10 98.8 79 19 137/65 96 Room Air 98.8 10/15/16 16:16 102.9 90 16 130/60 90 Room Air 102.9 I & O Intake and Output 10/16/16 07:00 Intake Total 3397 ml Output Total 1150 ml Balance 2247 ml Intake Oral 750 ml IV Total 1100 ml Blood Product IV Normal Saline Flush 1547 ml Output Urine Total 1150 ml ASSESSMENT/PLAN Assessment/Plan [id number] H&P dictated Problems: COMMENT Lab Laboratory Tests Test 10/15/16 17:20 10/15/16 17:40 10/15/16 19:00 10/15/16 19:15 White Blood Count 0.4x10^3/uL (4.0-11.0) Red Blood Count 2.97x10^6/uL (4.30-5.70) Hemoglobin 8.9g/dL (13.0-17.5) Hematocrit 26.1% (39.0-53.0) Mean Corpuscular Volume 88fL (79-100) Mean Corpuscular Hemoglobin 30pg (25-35) Mean Corpuscular Hemoglobin Concent 34g/dL (31-37) Red Cell Distribution Width 14.8% (11.5-14.5) Platelet Count 103x10^3/uL (140-400) Neutrophils (%) (Auto) 5% (31-73) Lymphocytes (%) (Auto) 25% (24-48) Monocytes (%) (Auto) 69% (0-9) Eosinophils (%) (Auto) 0% (0-3) Basophils (%) (Auto) 0% (0-3) Neutrophils # (Auto) 0.0x10^3uL (1.8-7.7) Lymphocytes # (Auto) 0.1x10^3/uL (1.0-4.8) Monocytes # (Auto) 0.3x10^3/uL (0.0-1.1) Eosinophils # (Auto) 0.0x10^3/uL (0.0-0.7) Basophils # (Auto) 0.0x10^3/uL (0.0-0.2) Sodium Level 139mmol/L (136-145) Potassium Level 3.7mmol/L (3.5-5.1) Chloride Level 102mmol/L (98-107) Carbon Dioxide Level 29mmol/L (21-32) Anion Gap 8 (6-14) Blood Urea Nitrogen 18mg/dL (8-26) Creatinine 1.1mg/dL (0.7-1.3) Estimated GFR (Cockcroft-Gault) 67.0 BUN/Creatinine Ratio 16 (6-20) Glucose Level 143mg/dL (70-99) Lactic Acid Level 2.4mmol/L (0.4-2.0) 2.8mmol/L (0.4-2.0) Calcium Level 8.1mg/dL (8.5-10.1) Total Bilirubin 0.6mg/dL (0.2-1.0) Aspartate Amino Transf (AST/SGOT) 36U/L (15-37) Alanine Aminotransferase (ALT/SGPT) 23U/L (16-63) Alkaline Phosphatase 82U/L (46-116) Total Protein 5.6g/dL (6.4-8.2) Albumin 2.5g/dL (3.4-5.0) Albumin/Globulin Ratio 0.8 (1.0-1.7) Lipase 93U/L (73-393) Prothrombin Time 16.4SEC (11.7-14.0) Prothromb Time International Ratio 1.4 (0.8-1.1) Urine Collection Type Unknown Urine Color Yellow Urine Clarity Clear Urine pH 6.5 Urine Specific [place] 1.015 Urine Protein Negativemg/dL (NEG-TRACE) Urine Glucose (UA) Negativemg/dL (NEG) Urine Ketones (Stick) Negativemg/dL (NEG) Urine Blood Small (NEG) Urine Nitrite Negative (NEG) Urine Bilirubin Negative (NEG) Urine Urobilinogen Dipstick 0.2mg/dL (0.2 mg/dL) Urine Leukocyte Esterase Negative (NEG) Urine RBC 6-10/HPF (0-2) Urine WBC 0/HPF (0-4) Urine Squamous Epithelial Cells Occ/LPF Urine Bacteria 0/HPF (0-FEW) Test 10/15/16 21:00 Lactic Acid Level 2.5mmol/L (0.4-2.0) GERALDO ASKEW MD Oct 16, 2016 13:52
[2016-10-16 15:00] VITALS: BP 163/62
[2016-10-16] MEDS: VANCOMYCIN PER PHARMACY MC PRN (15:03)
[2016-10-16 19:00] VITALS: BP 157/67
--- NOTE | 2016-10-16 19:28 | HP ---
ADMIT DATE: PMCL NUMBER: [id number] HISTORY OF PRESENT ILLNESS: The patient is a 66-year-old who presented to the Emergency Room due to weakness, fever and chills. He has a history of metastatic prostate cancer and has undergone chemotherapy on 10/06/2016. He was evaluated in the Emergency Room and was found to be neutropenic. He was admitted for treatment and evaluation of neutropenic fever. PAST MEDICAL HISTORY: Significant for prostate cancer metastatic to the bone, previous history of urinary retention, osteoarthritis, back pain, hypertension and previous history of ureteral stents bilaterally. REVIEW OF SYSTEMS: CONSTITUTIONAL: The patient reports fever and chills, feeling fatigued and lightheaded. EYES: Denies visual changes. HEENT: Denies nasal congestion or sore throat. RESPIRATORY: Denies cough or shortness of breath. CARDIOVASCULAR: Denies chest pain. GASTROINTESTINAL: Denies abdominal pain, nausea or vomiting. GENITOURINARY: He does have painful, red lesions on the left thigh that has been present for 2 weeks. He does have urinary frequency and hesitation. MUSCULOSKELETAL: He has back pain and arthritis, chronic. NEUROLOGY: No acute change. PHYSICAL EXAMINATION: GENERAL: Alert and oriented, in no acute distress, cooperative. HEENT: Tympanic membranes clear. Pharynx clear. LUNGS: Clear to auscultation bilaterally. HEART: Regular rate and rhythm. ABDOMEN: Soft, nontender, no organomegaly. GENITOURINARY: He does have multiple erythematous, ____ blanching, slightly tender skin lesion in the left groin area. No active draining. BACK: He has no CVA tenderness. EXTREMITIES: No edema, clubbing or cyanosis. NEUROLOGIC: Normal. IMPRESSION: 1. Neutropenic fever. 2. Metastatic prostate cancer. 3. History of hypertension. 4. Neutropenia due to chemotherapy. Infectious Disease as well as Hematology/Oncology has been consulted. He is covered with IV antibiotics and possibly will start Neupogen. GERALDO ASKEW MD DR: KATINA/ivon JOB#: [id number] / [id number]
[2016-10-16] MEDS: TBO-FILGRASTIM 480 MCG/0.8 ML SYRINGE. SQ SCH (21:14)
[2016-10-16 22:38] VITALS: BP 166/70
--- NOTE | 2016-10-17 00:05 | CONS ---
DATE OF CONSULTATION: 10/15/2016 REFERRING PHYSICIAN: Dr. Estrella REASON FOR CONSULT: Sepsis. HISTORY OF PRESENT ILLNESS: This patient is a 66-year-old gentleman who was diagnosed with an adenocarcinoma of the prostate with bone metastasis in 02/2015. He also has a history of bilateral hydronephrosis, status post bilateral ureteral stent placement. The patient was initially started on Lupron and Xgeva. He underwent a Port-A-Cath placement on 10/01 and received his first dose of chemo on the of this month. However, the past 3 or 4 days, he reports not feeling well. He was extremely tired, not eating much and energy level was low. Yesterday, he developed a fever of 103 associated with chills. On arrival to the ER, his temp was 102.9. WBCs 0.4, neutrophils 5%, lymphocytes 25%, monocytes 69%. Lactic acid 2.8. Urinalysis is unremarkable for infection. Blood cultures were ordered. A chest x-ray showed no acute processes. He was started on vancomycin and meropenem. The patient is feeling a little bit better. He reports about a month ago, he noticed small pimple-like dots which have progressively increased in size located in the groin area. He was seen by his primary care provider who prescribed a 7-day course of clindamycin. The patient noticed some improvement, but has gotten worse since being off the antibiotics and now one is draining. He denies headache, nasal/sinus congestion or sore throat. Denies cough, shortness of air or wheezing. Denies chest pain, palpitations or swelling. Denies nausea, vomiting or diarrhea. Denies rash. Denies muscle aches or joint pains. PAST MEDICAL HISTORY: 1. Adenocarcinoma of the prostate with bone metastasis, diagnosed in 02/2015. 2. Bilateral hydronephrosis, status post bilateral ureteral stent placement. 3. Chronic back pain. PAST SURGICAL HISTORY: Port-A-Cath placement on 10/01/2016. SOCIAL HISTORY: The patient is and lives at home. Nonsmoker. 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 FAMILY HISTORY: Noncontributory. ALLERGIES: Acetaminophen. MEDICATIONS: Vancomycin, meropenem, fentanyl p.r.n., morphine p.r.n., ondansetron p.r.n. Home meds include recent steroids. ROS : as per HPI, rest neg. PHYSICAL EXAMINATION: GENERAL: male, lying in bed, in no apparent distress. VITAL SIGNS: Temperature is 97.5, T-max 102.9, blood pressure 108/58, heart rate 62, respiratory rate 14, pulse oximetry is 96% on room air, weight is 171 pounds. HEENT: Normal conjunctivae. Oral mucosa is pink and moist. No thrush. NECK: Supple. No adenopathy present. LUNGS: Clear to auscultation. HEART: Normal S1, S2. ABDOMEN: Nondistended. Bowel sounds are present, soft, nontender. EXTREMITIES: No gross edema or cyanosis. SKIN: Without rash. He has several red nodules with various sizes, the largest one measuring about 4 cm with drainage, left groin area. Mildly tender. No adjacent redness or warmth noted. NEUROLOGIC: Alert and oriented x 3. Moves all extremities. LINES: Right Port-A-Cath without signs of infection. LABORATORY DATA: WBCs 0.4, hemoglobin 8.9, platelet count 103,000, neutrophils 5%, lymphocytes 25%, monocytes 69%. Electrolytes are unremarkable. Creatinine 1.1, BUN 18, glucose 143. Lactic acid 2.5. Albumin 2.5. Lipase 93. Total bilirubin 0.6, AST 36, ALT 23. Urinalysis unremarkable for infection. Urine culture negative. Blood cultures pending. Chest x-ray shows right Port-A-Cath in satisfactory position, extensive multifocal blastic osseous metastatic disease and no acute cardiopulmonary abnormality detected. IMPRESSION: 1. Sepsis with lactic acidosis, present on admission. 2. Neutropenic fever. 3. Nodules left groin. Abscess verses metastatic disease. 4. Metastatic adenocarcinoma of prostate with recent chemo on 10/06/2016. PLAN: I will continue the vancomycin and meropenem. May need a biopsy. Await blood cultures. Monitor counts and temperature. Await Oncology evaluation. Thank you, Dr. Estrella for asking us to participate in this patient's care. Should you have further questions or concerns, please call. ROB JOHN MD DR: RENE/ivon JOB#: [id number] / [id number] [id number]
[2016-10-17 02:34] VITALS: BP 141/75
[2016-10-17] MEDS: MEROPENEM 1 GM in IV NORMAL SALINE 100ML 100 ML IV SCH ×3 (05:26→22:01)
[2016-10-17 06:34] LABS: BASO % 1 % (0-3); EOS % 0 % (0-3); HEMATOCRIT 23.2 % (39.0-53.0); HEMOGLOBIN 8.3 g/dL (13.0-17.5); LYMPH # 0.4 x10^3/uL (1.0-4.8); LYMPH % 32 % (24-48); MEAN CORPUSCULAR HEMOGLOBIN 31 pg (25-35); MEAN CORPUSCULAR HGB CONC 36 g/dL (31-37); MEAN CORPUSCULAR VOLUME 86 fL (79-100); MONO % 36 % (0-9); NEUT % 32 % (31-73); PLATELET COUNT 99 x10^3/uL (140-400); RED CELL DISTRIBUTION WIDTH 14.5 % (11.5-14.5)
[2016-10-17 06:47] LABS: WHITE BLOOD COUNT 1.3 x10^3/uL (4.0-11.0)
[2016-10-17] MEDS: VANCOMYCIN PER PHARMACY MC PRN (07:08)
[2016-10-17] MEDS: VANCOMYCIN 1.25 GM in IV NORMAL SALINE 250ML 250 ML IV SCH ×2 (07:21→20:13)
[2016-10-17] MEDS: PREDNISONE 5 MG TABLET PO SCH ×2 (08:12→20:16)
[2016-10-17] MEDS: LACTOBACILLUS ACIDOPH & BULGAR 1 TABLET. PO SCH (08:13)
[2016-10-17] MEDS: CHOLECALCIFEROL (VITAMIN D3) 5,000 UNIT CAPSULE PO SCH (08:13)
[2016-10-17] MEDS: CALCIUM CARBONATE 500 MG TABLET PO SCH (08:13)
[2016-10-17 10:25] VITALS: BP 151/75
--- NOTE | 2016-10-17 10:25 | PDOC ---
PROGRESS NOTES Subjective Subjective Met prostate cancer, s/p taxotere chemo Admitted with neutropenic fever Currently on IV abx and fever curve better Added growth factor 10/16 and he did feel some fatigue and hot flashes after, but otherwise ok Has nodules in left groin area, concerning for disease Objective Objective Vital Signs Date Time Temp Pulse Resp B/P Pulse Ox O2 Delivery O2 Flow Rate FiO2 10/17/16 02:34 97.9 69 17 141/75 97 Room Air 97.9 Intake and Output 10/17/16 07:00 Intake Total 2050 ml Output Total 1150 ml Balance 900 ml Intake Oral 2050 ml Output Urine Total 1150 ml # Voids 3 # Bowel Movements 4 Physical Exam Abdomen: Normal bowel sounds, Soft Heart: Regular rate Extremities: No edema General: Alert, Oriented X3, Cooperative Skin: Other (several nodules in left groin/pubic area, primarily red but feel firm. also larger several cm area in groin ) Assessment Assessment 1. Met prostate Cancer 2. Neutropenic fever, no clear source yet - ? skin Continue IVabx and will need growth factor again today I am concerned the skin lesions represent met disease - not typical presentation and biopsy to confirm or evaluate histology may be appropriate after wbc better he voiced understanding of plan. Problems Medical Problems: (1) Febrile neutropenia Status: Acute Comment Review of Relevant I have reviewed the following items elpidio (where applicable) has been applied. Labs Laboratory Tests Test 10/15/16 17:20 10/15/16 17:40 10/15/16 19:00 10/15/16 19:15 White Blood Count 0.4x10^3/uL (4.0-11.0) Red Blood Count 2.97x10^6/uL (4.30-5.70) Hemoglobin 8.9g/dL (13.0-17.5) Hematocrit 26.1% (39.0-53.0) Mean Corpuscular Volume 88fL (79-100) Mean Corpuscular Hemoglobin 30pg (25-35) Mean Corpuscular Hemoglobin Concent 34g/dL (31-37) Red Cell Distribution Width 14.8% (11.5-14.5) Platelet Count 103x10^3/uL (140-400) Neutrophils (%) (Auto) 5% (31-73) Lymphocytes (%) (Auto) 25% (24-48) Monocytes (%) (Auto) 69% (0-9) Eosinophils (%) (Auto) 0% (0-3) Basophils (%) (Auto) 0% (0-3) Neutrophils # (Auto) 0.0x10^3uL (1.8-7.7) Lymphocytes # (Auto) 0.1x10^3/uL (1.0-4.8) Monocytes # (Auto) 0.3x10^3/uL (0.0-1.1) Eosinophils # (Auto) 0.0x10^3/uL (0.0-0.7) Basophils # (Auto) 0.0x10^3/uL (0.0-0.2) Sodium Level 139mmol/L (136-145) Potassium Level 3.7mmol/L (3.5-5.1) Chloride Level 102mmol/L (98-107) Carbon Dioxide Level 29mmol/L (21-32) Anion Gap 8 (6-14) Blood Urea Nitrogen 18mg/dL (8-26) Creatinine 1.1mg/dL (0.7-1.3) Estimated GFR (Cockcroft-Gault) 67.0 BUN/Creatinine Ratio 16 (6-20) Glucose Level 143mg/dL (70-99) Lactic Acid Level 2.4mmol/L (0.4-2.0) 2.8mmol/L (0.4-2.0) Calcium Level 8.1mg/dL (8.5-10.1) Total Bilirubin 0.6mg/dL (0.2-1.0) Aspartate Amino Transf (AST/SGOT) 36U/L (15-37) Alanine Aminotransferase (ALT/SGPT) 23U/L (16-63) Alkaline Phosphatase 82U/L (46-116) Total Protein 5.6g/dL (6.4-8.2) Albumin 2.5g/dL (3.4-5.0) Albumin/Globulin Ratio 0.8 (1.0-1.7) Lipase 93U/L (73-393) Prothrombin Time 16.4SEC (11.7-14.0) Prothromb Time International Ratio 1.4 (0.8-1.1) Urine Collection Type Unknown Urine Color Yellow Urine Clarity Clear Urine pH 6.5 Urine Specific Institute 1.015 Urine Protein Negativemg/dL (NEG-TRACE) Urine Glucose (UA) Negativemg/dL (NEG) Urine Ketones (Stick) Negativemg/dL (NEG) Urine Blood Small (NEG) Urine Nitrite Negative (NEG) Urine Bilirubin Negative (NEG) Urine Urobilinogen Dipstick 0.2mg/dL (0.2 mg/dL) Urine Leukocyte Esterase Negative (NEG) Urine RBC 6-10/HPF (0-2) Urine WBC 0/HPF (0-4) Urine Squamous Epithelial Cells Occ/LPF Urine Bacteria 0/HPF (0-FEW) Test 10/15/16 21:00 10/17/16 06:00 Lactic Acid Level 2.5mmol/L (0.4-2.0) White Blood Count 1.3x10^3/uL (4.0-11.0) Red Blood Count 2.70x10^6/uL (4.30-5.70) Hemoglobin 8.3g/dL (13.0-17.5) Hematocrit 23.2% (39.0-53.0) Mean Corpuscular Volume 86fL (79-100) Mean Corpuscular Hemoglobin 31pg (25-35) Mean Corpuscular Hemoglobin Concent 36g/dL (31-37) Red Cell Distribution Width 14.5% (11.5-14.5) Platelet Count 99x10^3/uL (140-400) Neutrophils (%) (Auto) 32% (31-73) Lymphocytes (%) (Auto) 32% (24-48) Monocytes (%) (Auto) 36% (0-9) Eosinophils (%) (Auto) 0% (0-3) Basophils (%) (Auto) 1% (0-3) Neutrophils # (Auto) 0.4x10^3uL (1.8-7.7) Lymphocytes # (Auto) 0.4x10^3/uL (1.0-4.8) Monocytes # (Auto) 0.5x10^3/uL (0.0-1.1) Eosinophils # (Auto) 0.0x10^3/uL (0.0-0.7) Basophils # (Auto) 0.0x10^3/uL (0.0-0.2) Vancomycin Level Trough 16.8mcg/mL (10.0-20.0) Vancomycin Last Dose Date 10/16/16 Vancomycin Last Dose Time 1900 Laboratory Tests Test 10/17/16 06:00 White Blood Count 1.3x10^3/uL (4.0-11.0) Red Blood Count 2.70x10^6/uL (4.30-5.70) Hemoglobin 8.3g/dL (13.0-17.5) Hematocrit 23.2% (39.0-53.0) Mean Corpuscular Volume 86fL (79-100) Mean Corpuscular Hemoglobin 31pg (25-35) Mean Corpuscular Hemoglobin Concent 36g/dL (31-37) Red Cell Distribution Width 14.5% (11.5-14.5) Platelet Count 99x10^3/uL (140-400) Neutrophils (%) (Auto) 32% (31-73) Lymphocytes (%) (Auto) 32% (24-48) Monocytes (%) (Auto) 36% (0-9) Eosinophils (%) (Auto) 0% (0-3) Basophils (%) (Auto) 1% (0-3) Neutrophils # (Auto) 0.4x10^3uL (1.8-7.7) Lymphocytes # (Auto) 0.4x10^3/uL (1.0-4.8) Monocytes # (Auto) 0.5x10^3/uL (0.0-1.1) Eosinophils # (Auto) 0.0x10^3/uL (0.0-0.7) Basophils # (Auto) 0.0x10^3/uL (0.0-0.2) Vancomycin Level Trough 16.8mcg/mL (10.0-20.0) Vancomycin Last Dose Date 10/16/16 Vancomycin Last Dose Time 1900 Microbiology 10/15/16 Blood Culture - Preliminary, Resulted NO GROWTH AFTER 1 DAY Medications Current Medications Sodium Chloride (Iv Sodium Chloride 0.9% 1000ml Bag) 1,000 ml @ 1,000 mls/hr 1X ONCE IV Last administered on 10/15/16 17:32; Start 10/15/16 at 16:45; Stop 10/15/16 at 17:44; Status DC Ibuprofen (Motrin) 600 mg 1X ONCE PO Last administered on 10/15/16 16:44; Start 10/15/16 at 16:45; Stop 10/15/16 at 16:46; Status DC Lidocaine/Sodium Bicarbonate (Buffered Lidocaine 1%) 2 ml 1X ONCE IJ ; Start at 17:00; Stop 10/15/16 at 17:01; Status DC Vancomycin HCl 1 each 1 each PRN DAILY PRN MC SEE COMMENTS Last administered on 10/17/16 07:08; Start 10/15/16 at 16:45 Meropenem 1 gm/ Sodium Chloride 100 ml @ 200 mls/hr Q8HRS IV Last administered on 10/17/16 05:26; Start 10/16/16 at 00:00 Vancomycin HCl 2 gm/Sodium Chloride 500 ml @ 250 mls/hr 1X ONCE IV Last administered on 10/15/16 19:00; Start 10/15/16 at 17:00; Stop 10/15/16 at 18:59 ; Status DC Meropenem/Sodium Chloride (Merrem/Iv Sodium Chloride 0.9% 100ml) 100 ml @ 200 mls/hr 1X ONCE IV Last administered on 10/15/16 17:50; Start 10/15/16 at 17: 00; Stop 10/15/16 at 17:29; Status DC Sodium Chloride 10 ml 10 ml STK-MED ONCE .ROUTE ; Start 10/15/16 at 16:47; Stop 10/15/16 at 16:48; Status DC Sodium Chloride (Iv Sodium Chloride 0.9% 1000ml Bag) 1,000 ml @ 1,000 mls/hr 1X ONCE IV ; Start 10/15/16 at 18:15; Stop 10/15/16 at 19:14; Status DC Ondansetron HCl (Zofran) 4 mg PRN Q8HRS PRN IV NAUSEA/VOMITING; Start 10/15/16 at 18:45; Stop 10/16/16 at 18:44; Status DC Morphine Sulfate 4 mg 4 mg PRN Q2HR PRN IV PAIN; Start 10/15/16 at 18:45; Stop 10/16/16 at 00:42; Status DC Sodium Chloride (Iv Sodium Chloride 0.9% 1000ml Bag) 1,000 ml @ 150 mls/hr Q6H40M IV Last administered on 1/28/17at 11:03; Start 10/15/16 at 18:37; Stop 10/16/16 at 18:36; Status DC Ibuprofen 600 mg 600 mg PRN Q6HRS PRN PO FEVER > 100.5'F; Start 10/15/16 at 18: 45 Vancomycin HCl/ Sodium Chloride (Iv Sodium Chloride 0.9% 250ml) 250 ml @ 167 mls/hr Q12H IV Last administered on 10/17/16 07:21; Start 10/16/16 at 07:00 Vancomycin HCl 1 each 1X ONCE MC Last administered on 10/17/16 06:30; Start 10/17/16 at 06:30; Stop 10/17/16 at 06:31; Status DC Fentanyl (Duragesic 75mcg/ Hr Patch) 1 patch Q3DAYS TD ; Start 10/18/16 at 09:00 Fentanyl Citrate (Fentanyl 2ml Vial) 75 mcg PRN Q3HRS PRN IV BREAKTHROUGH PAIN ; Start 10/15/16 at 22:30 Fentanyl (Duragesic 75mcg/ Hr Patch) 1 patch ONCE ONCE TD Last administered on 10/15/16 23:33; Start 10/15/16 at 23:00; Stop 10/15/16 at 23:01; Status DC Prednisone (Prednisone) 5 mg BID PO Last administered on 10/17/16 08:12; Start 10/16/16 at 12:00 Lactobacillus Acidophilus (Bacid, Layla-Bid) 1 tab DAILY PO Last administered on 10/17/16 08:13; Start 10/16/16 at 12:00 Metoclopramide HCl (Reglan) 5 mg TID PRN PRN PO NAUSEA/VOMITING; Start at 11:15 Furosemide (Lasix) 20 mg PRN DAILY PRN PO as needed for swelling; Start at 11:15 Polyethylene Glycol (miraLAX PACKET) 17 gm PRN DAILY PRN PO CONSTIPATION; Start 10/16/16 at 11:15 Vitamin D (Vitamin D3) 5,000 unit DAILY PO Last administered on 10/17/16 08:13 ; Start 10/16/16 at 12:00 Calcium Carbonate/ Glycine (Oscal) 500 mg DAILY PO Last administered on 08:13; Start 10/16/16 at 12:00 Tbo-Filgrastim (Granix) 480 mcg QHS SQ Last administered on 10/16/16t 21:14; Start 10/16/16 at 21:00 Active Scripts Active [Polyethylene Glycol 3350] 17 GM Packet 17 Gm PO BID Reported FENTANYL 75mcg/hr (Fentanyl) 1 Each Patch.td72 75 Mcg TD Q3DAYS Prednisone 5 Mg Tablet 5 Mg BID Dexamethasone 4 Mg Tablet Furosemide 20 Mg Tablet 20 Mg PO DAILY Lisinopril 10 Mg Tablet 10 Mg PO DAILY Metoclopramide Hcl 5 Mg Tablet 5 Mg PO TID PRN PRN [floragen probiotic] PO DAILY 30 Days Clindamycin Hcl 300 Mg Capsule 300 Mg PO TID 7 Days Oxycontin (Oxycodone HCl) 40 Mg Tab.er.12h 40 Mg PO BID Calcium 600 + Vit D 200 Tablet (Calcium Carbonate/Vitamin D3) 1 Each Tablet 1 Each PO DAILY Vitamin D (Cholecalciferol (Vitamin D3)) 2,000 Unit Capsule 5,000 Unit PO DAILY Xgeva (Denosumab) 120 Mg/1.7 Ml Vial 120 Mg SQ Q4WK Lupron Depot (Leuprolide Acetate) 11.25 Mg Syringekit 11.25 Mg IM Vitals/I & O Vital Sign - Last 24 Hours 10/16/16 10/16/16 10/16/16 10/16/16 11:00 15:00 19:00 22:38 Temp 96.6 97.7 98.1 98.2 96.6 97.7 98.1 98.2 Pulse 70 62 78 63 Resp 14 14 18 18 B/P 123/68 163/62 157/67 166/70 Pulse Ox 98 98 95 97 O2 Delivery Room Air Room Air Room Air Room Air 10/17/16 02:34 Temp 97.9 97.9 Pulse 69 Resp 17 B/P 141/75 Pulse Ox 97 O2 Delivery Room Air Intake and Output 10/16/16 10/16/16 10/17/16 15:00 23:00 07:00 Intake Total 510 ml 840 ml 700 ml Output Total 350 ml 400 ml 400 ml Balance 160 ml 440 ml 300 ml RONNIE FIELDS MD Oct 17, 2016 10:25
[2016-10-17 10:30] LABS: NUCLEATED RBC 1
[2016-10-17 10:32] LABS: ANISOCYTOSIS SLIGHT; POLYCHROMASIA SLIGHT
--- NOTE | 2016-10-17 10:47 | PDOC ---
SUBJECTIVE Subjective Complains of having some mild headache and feeling fatigued after he received Neupogen yesterday, no fever and otherwise he does not have a new complaints OBJECTIVE Vital Signs Vital Signs Date Time Temp Pulse Resp B/P Pulse Ox O2 Delivery O2 Flow Rate FiO2 10/17/16 10:25 98.1 87 22 151/75 97 Room Air 98.1 10/17/16 02:34 97.9 69 17 141/75 97 Room Air 97.9 10/16/16 22:38 98.2 63 18 166/70 97 Room Air 98.2 10/16/16 19:00 98.1 78 18 157/67 95 Room Air 98.1 10/16/16 15:00 97.7 62 14 163/62 98 Room Air 97.7 10/16/16 11:00 96.6 70 14 123/68 98 Room Air 96.6 I & O Intake and Output 10/17/16 07:00 Intake Total 2050 ml Output Total 1150 ml Balance 900 ml Intake Oral 2050 ml Output Urine Total 1150 ml # Voids 3 # Bowel Movements 4 PHYSICAL EXAM Physical Exam Not much change in his exam ASSESSMENT/PLAN Assessment/Plan 1. Neutropenic fever. His white count increased continue plan per oncology and continue antibiotics 2. Metastatic prostate cancer. 3. History of hypertension. 4. Neutropenia due to chemotherapy. 5. Skin lesions worrisome for metastatic disease plans for skin biopsy when his white count is better Dr. Estrella will resume care tomorrow Problems: COMMENT Lab Laboratory Tests Test 10/17/16 06:00 White Blood Count 1.3x10^3/uL (4.0-11.0) Red Blood Count 2.70x10^6/uL (4.30-5.70) Hemoglobin 8.3g/dL (13.0-17.5) Hematocrit 23.2% (39.0-53.0) Mean Corpuscular Volume 86fL (79-100) Mean Corpuscular Hemoglobin 31pg (25-35) Mean Corpuscular Hemoglobin Concent 36g/dL (31-37) Red Cell Distribution Width 14.5% (11.5-14.5) Platelet Count 99x10^3/uL (140-400) Neutrophils (%) (Auto) 32% (31-73) Lymphocytes (%) (Auto) 32% (24-48) Monocytes (%) (Auto) 36% (0-9) Eosinophils (%) (Auto) 0% (0-3) Basophils (%) (Auto) 1% (0-3) Neutrophils # (Auto) 0.4x10^3uL (1.8-7.7) Lymphocytes # (Auto) 0.4x10^3/uL (1.0-4.8) Monocytes # (Auto) 0.5x10^3/uL (0.0-1.1) Eosinophils # (Auto) 0.0x10^3/uL (0.0-0.7) Basophils # (Auto) 0.0x10^3/uL (0.0-0.2) Segmented Neutrophils % 4% (35-66) Band Neutrophils % 16% (0-9) Lymphocytes % 45% (24-48) Atypical Lymphocytes % (Manual) 4% (0-0) Monocytes % 18% (0-10) Metamyelocytes % 2% (0-0) Myelocytes % 6% (0-0) Promyelocytes % 4% (0-0) Nucleated Red Blood Cells 1 Large Platelets Present Polychromasia Slight Basophilic Stippling Present Anisocytosis Slight Vancomycin Level Trough 16.8mcg/mL (10.0-20.0) Vancomycin Last Dose Date 10/16/16 Vancomycin Last Dose Time 1900 GERALDO ASKEW MD Oct 17, 2016 10:47
[2016-10-17 11:33] LABS: PLT ESTIMATE DECREASED (ADEQUATE)
[2016-10-17] MEDS: LISINOPRIL 10 MG TABLET PO SCH (11:45)
--- NOTE | 2016-10-17 12:12 | PDOC ---
Infectious Disease Note Subjective Subjective Slept well Slight Headache No fever last 24 hours ROS ROS GEN: Denies chills, sweats CV: Denies chest pain RESP: Denies shortness of air, cough GI: Denies n/v/d Vital Sign Vital Signs Vital Signs Date Time Temp Pulse Resp B/P Pulse Ox O2 Delivery O2 Flow Rate FiO2 10/17/16 11:45 87 151/75 10/17/16 10:25 98.1 22 97 Room Air 98.1 Physical Exam PHYSICAL EXAM GENERAL: Lying down, relaxed appearance HEENT: Normal conjunctivae. Oral mucosa is pink and moist. No thrush. NECK: Supple. No adenopathy present. LUNGS: Clear to auscultation. HEART: Normal S1, S2. ABDOMEN: Nondistended. Bowel sounds are present, soft, nontender. EXTREMITIES: No gross edema or cyanosis. SKIN: Without rash. Several red various sized nodules, the largest one measuring about 4 cm with drainage, left groin area. Mildly tender. No adjacent redness or warmth noted. NEUROLOGIC: Alert and oriented x 3. Moves all extremities. Port-A-Cath without signs of infection. Labs Lab Laboratory Tests Test 10/17/16 06:00 White Blood Count 1.3x10^3/uL (4.0-11.0) Red Blood Count 2.70x10^6/uL (4.30-5.70) Hemoglobin 8.3g/dL (13.0-17.5) Hematocrit 23.2% (39.0-53.0) Mean Corpuscular Volume 86fL (79-100) Mean Corpuscular Hemoglobin 31pg (25-35) Mean Corpuscular Hemoglobin Concent 36g/dL (31-37) Red Cell Distribution Width 14.5% (11.5-14.5) Platelet Count 99x10^3/uL (140-400) Neutrophils (%) (Auto) 32% (31-73) Lymphocytes (%) (Auto) 32% (24-48) Monocytes (%) (Auto) 36% (0-9) Eosinophils (%) (Auto) 0% (0-3) Basophils (%) (Auto) 1% (0-3) Neutrophils # (Auto) 0.4x10^3uL (1.8-7.7) Lymphocytes # (Auto) 0.4x10^3/uL (1.0-4.8) Monocytes # (Auto) 0.5x10^3/uL (0.0-1.1) Eosinophils # (Auto) 0.0x10^3/uL (0.0-0.7) Basophils # (Auto) 0.0x10^3/uL (0.0-0.2) Segmented Neutrophils % 4% (35-66) Band Neutrophils % 16% (0-9) Lymphocytes % 45% (24-48) Atypical Lymphocytes % (Manual) 4% (0-0) Monocytes % 18% (0-10) Metamyelocytes % 2% (0-0) Myelocytes % 6% (0-0) Promyelocytes % 4% (0-0) Nucleated Red Blood Cells 1 Platelet Estimate Decreased (ADEQUATE) Large Platelets Present Polychromasia Slight Basophilic Stippling Present Anisocytosis Slight Vancomycin Level Trough 16.8mcg/mL (10.0-20.0) Vancomycin Last Dose Date 10/16/16 Vancomycin Last Dose Time 1900 Micro BLOOD CULTURE Preliminary NO GROWTH AFTER 1 DAY Objective Assessment Sepsis with lactic acidosis. POA Neutropenic fever Nodules left groin. Abscess vs metastatic disease -Seven day course of clindamycin, 2 weeks ago, minimal improvement, now worse Met adenocarcinoma of prostate -s/p chemo on 10/06. = steroids -s/p port-a-cath placement, 10/01 h/o bilat hydronephrosis s/p stent Plan Plan of Care Vanc and Meropenem May biopsy BC NGTD Monitor counts and temp D/w Attending Co-Sign The patient was seen and interviewed as well as examined at the bedside. The chart was reviewed. The case was discussed. Agree with the plan of care. BROOKS ZAMBRANO APRN Oct 17, 2016 12:12 ROB JOHN MD Oct 17, 2016 12:42
[2016-10-17 19:00] VITALS: BP 136/76
[2016-10-17] MEDS: TBO-FILGRASTIM 480 MCG/0.8 ML SYRINGE. SQ SCH (20:16)
[2016-10-17 23:00] VITALS: BP 142/74
[2016-10-18 03:00] VITALS: BP 155/74
[2016-10-18] MEDS: MEROPENEM 1 GM in IV NORMAL SALINE 100ML 100 ML IV SCH (05:58)
[2016-10-18] MEDS ORDERED: OXYC10TA PO (06:06)
[2016-10-18 06:19] LABS: BASO % 0 % (0-3); EOS % 0 % (0-3); HEMATOCRIT 24.6 % (39.0-53.0); HEMOGLOBIN 8.6 g/dL (13.0-17.5); LYMPH # 1.1 x10^3/uL (1.0-4.8); LYMPH % 13 % (24-48); MEAN CORPUSCULAR HEMOGLOBIN 30 pg (25-35); MEAN CORPUSCULAR HGB CONC 35 g/dL (31-37); MEAN CORPUSCULAR VOLUME 87 fL (79-100); MONO % 17 % (0-9); NEUT % 70 % (31-73); PLATELET COUNT 117 x10^3/uL (140-400); RED BLOOD COUNT 2.85 x10^6/uL (4.30-5.70); RED CELL DISTRIBUTION WIDTH 14.7 % (11.5-14.5); WHITE BLOOD COUNT 8.2 x10^3/uL (4.0-11.0)
[2016-10-18] MEDS: OXYCODONE IR 5 MG TABLET. PO PRN (06:32)
[2016-10-18] MEDS: VANCOMYCIN 1.25 GM in IV NORMAL SALINE 250ML 250 ML IV SCH (06:35)
[2016-10-18 06:38] LABS: ALBUMIN 2.2 g/dL (3.4-5.0); ALBUMIN/GLOBULIN RATIO 0.8 (1.0-1.7); CALCIUM 8.3 mg/dL (8.5-10.1); CREATININE 0.9 mg/dL (0.7-1.3); GFR 84.4; POTASSIUM 3.3 mmol/L (3.5-5.1); TOTAL BILIRUBIN 0.5 mg/dL (0.2-1.0)
[2016-10-18 07:00] VITALS: BP 144/77
[2016-10-18 08:01] LABS: % BASOS 1 % (0-3); % EOS 1 % (0-5); NUCLEATED RBC 2
[2016-10-18 08:02] LABS: PLT ESTIMATE DECREASED (ADEQUATE)
[2016-10-18 08:03] LABS: ANISOCYTOSIS SLIGHT
[2016-10-18 08:13] LABS: TOXIC GRANULATION PRESENT
--- NOTE | 2016-10-18 08:16 | PDOC ---
Provider Note Provider Note afeb x 48 hrs, no new sxs- cultures neg, wbc up 8800- L groin noduyles are solid /soft, likely cutaneous mets- surg consult re exc biopsy- pain control ok on duragesic HUNTER COTTON MD Oct 18, 2016 08:16
[2016-10-18 08:31] LABS: % BLASTS 2 % (0-0)
--- NOTE | 2016-10-18 08:36 | PDOC ---
Subjective: Subjective: Onc f/u- Prostate cancer Pt feeling better now. No more fevers, rigors, chills. No SOB, CP, abd pain. Groin nodules decreasing in size but firm. Objective: Vital Signs: Vital Signs Date Time Temp Pulse Resp B/P Pulse Ox O2 Delivery O2 Flow Rate FiO2 10/18/16 06:32 20 Room Air 10/18/16 03:00 98.1 68 155/74 96 98.1 Physical Exam: Heart: Regular rate Extremities: No edema General: Alert, Oriented X3, Cooperative, No acute distress Lungs: Other (no resp distress) Psych/Mental Status: Mental status NL, Mood NL Skin: Other (chronic pallor unchanged. Groin with mutliple firm nodules, purple color, slight improvement) Labs/Imaging: ANC > 5 Hgb stable > 8 Plt 99 Blood cx neg Assessment/Plan A/P: 1. 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 Groin nodules, not improving with abx, now some improvement with chemo - Likely skin mets, though this is not common with prostate cancer - Bx requested 3. Neutropenic fever due to chemo- improved - Cx neg - Stop neulasta Ok to dc from onc standpoint; will f/u next week. D/W Dr. Estrella. MUNA SILVA DO Oct 18, 2016 08:36
[2016-10-18] MEDS: LISINOPRIL 10 MG TABLET PO SCH (08:50)
[2016-10-18] MEDS: CALCIUM CARBONATE 500 MG TABLET PO SCH (08:50)
[2016-10-18] MEDS: LACTOBACILLUS ACIDOPH & BULGAR 1 TABLET. PO SCH (08:50)
[2016-10-18] MEDS: CHOLECALCIFEROL (VITAMIN D3) 5,000 UNIT CAPSULE PO SCH (08:50)
[2016-10-18] MEDS: PREDNISONE 5 MG TABLET PO SCH ×2 (08:50→20:49)
[2016-10-18] MEDS: POLYETHYLENE GLYCOL 3350 17 GM PACKET. PO SCH ×2 (08:51→20:49)
[2016-10-18] MEDS: POTASSIUM CHLORIDE 10 MEQ TABLET.ER. PO SCH ×3 (08:51→17:27)
[2016-10-18] MEDS ORDERED: FENTANYL 75MCG/HR PATCH. TD SCH (09:00)
--- NOTE | 2016-10-18 10:48 | PDOC ---
Infectious Disease Note Subjective Subjective feeling good, no fever ROS ROS GEN: Denies fevers, chills, sweats HEENT: Denies blurred vision, sore throat CV: Denies chest pain RESP: Denies shortness of air, cough GI: Denies n/v/d NEURO: Denies confusion, dizziness MSK: Denies weakness, joint pain/swelling Vital Sign Vital Signs Vital Signs Date Time Temp Pulse Resp B/P Pulse Ox O2 Delivery O2 Flow Rate FiO2 10/18/16 08:51 Room Air 10/18/16 08:50 70 144/70 10/18/16 07:45 96 10/18/16 07:00 98.7 18 98.7 Physical Exam PHYSICAL EXAM GENERAL: NAD, Alert HEENT: PERRL, OC/OP NECK: Supple, no JVD, no LN LUNGS: Clear HEART: S1S2, no gallop, no murmur ABD: Soft, NT, no organomegaly, no rebound EXT: No edema, no cyanosis ICE [employer] VENDOR: Alert, oriented x 3, no focal neurologic deficit SKIN: No rash IV: ok Labs Lab Laboratory Tests Test 10/18/16 05:55 White Blood Count 8.2x10^3/uL (4.0-11.0) Red Blood Count 2.85x10^6/uL (4.30-5.70) Hemoglobin 8.6g/dL (13.0-17.5) Hematocrit 24.6% (39.0-53.0) Mean Corpuscular Volume 87fL (79-100) Mean Corpuscular Hemoglobin 30pg (25-35) Mean Corpuscular Hemoglobin Concent 35g/dL (31-37) Red Cell Distribution Width 14.7% (11.5-14.5) Platelet Count 117x10^3/uL (140-400) Neutrophils (%) (Auto) 70% (31-73) Lymphocytes (%) (Auto) 13% (24-48) Monocytes (%) (Auto) 17% (0-9) Eosinophils (%) (Auto) 0% (0-3) Basophils (%) (Auto) 0% (0-3) Neutrophils # (Auto) 5.7x10^3uL (1.8-7.7) Lymphocytes # (Auto) 1.1x10^3/uL (1.0-4.8) Monocytes # (Auto) 1.4x10^3/uL (0.0-1.1) Eosinophils # (Auto) 0.0x10^3/uL (0.0-0.7) Basophils # (Auto) 0.0x10^3/uL (0.0-0.2) Segmented Neutrophils % 5% (35-66) Band Neutrophils % 32% (0-9) Lymphocytes % 13% (24-48) Atypical Lymphocytes % (Manual) 1% (0-0) Monocytes % 15% (0-10) Eosinophils % 1% (0-5) Basophils % 1% (0-3) Metamyelocytes % 8% (0-0) Myelocytes % 16% (0-0) Promyelocytes % 4% (0-0) Blast Cells % (Manual) 2% (0-0) Other Cells % % (0-0) Nucleated Red Blood Cells 2 Toxic Granulation Present Dohle Bodies Present Platelet Estimate Decreased (ADEQUATE) Anisocytosis Slight Sodium Level 144mmol/L (136-145) Potassium Level 3.3mmol/L (3.5-5.1) Chloride Level 109mmol/L (98-107) Carbon Dioxide Level 28mmol/L (21-32) Anion Gap 7 (6-14) Blood Urea Nitrogen 13mg/dL (8-26) Creatinine 0.9mg/dL (0.7-1.3) Estimated GFR (Cockcroft-Gault) 84.4 BUN/Creatinine Ratio 14 (6-20) Glucose Level 88mg/dL (70-99) Calcium Level 8.3mg/dL (8.5-10.1) Total Bilirubin 0.5mg/dL (0.2-1.0) Aspartate Amino Transf (AST/SGOT) 38U/L (15-37) Alanine Aminotransferase (ALT/SGPT) 25U/L (16-63) Alkaline Phosphatase 80U/L (46-116) Total Protein 5.0g/dL (6.4-8.2) Albumin 2.2g/dL (3.4-5.0) Albumin/Globulin Ratio 0.8 (1.0-1.7) Objective Assessment Sepsis with lactic acidosis. POA Neutropenic fever Nodules left groin. Abscess vs metastatic disease -Seven day course of clindamycin, 2 weeks ago, minimal improvement, now worse Met adenocarcinoma of prostate -s/p chemo on 10/06. = steroids -s/p port-a-cath placement, 10/01 h/o bilat hydronephrosis s/p stent Plan Plan of Care d/c Vanc and Meropenem biopsy of groin growth pending BC NGTD Monitor counts and temp ROB JOHN MD Oct 18, 2016 10:48
[2016-10-18 11:00] VITALS: BP 141/70
[2016-10-18 15:00] VITALS: BP 129/74
--- NOTE | 2016-10-18 17:47 | PDOC2 ---
CONSULT Date of Consult Date of Consult DATE: 10/18/16 TIME: 12:30 Reason for Consult Reason for Consult: left groin skin lesions Referring Physician Referring Physician: Dr Davies Identification/Chief Complaint Chief Complaint Left groin nodules/skin lesions Past Medical History Musculoskeletal: low back pain, Osteoarthritis Family History Family History: Cancer, Diabetes, Other (RA) Social History No ALCOHOL: none Lives: with Family Current Problem List Problem List Problems Medical Problems: (1) Febrile neutropenia Status: Acute Current Medications Current Medications Current Medications Sodium Chloride (Iv Sodium Chloride 0.9% 1000ml Bag) 1,000 ml @ 1,000 mls/hr 1X ONCE IV Last administered on 10/15/16 17:32; Start 10/15/16 at 16:45; Stop 10/15/16 at 17:44; Status DC Ibuprofen (Motrin) 600 mg 1X ONCE PO Last administered on 10/15/16 16:44; Start 10/15/16 at 16:45; Stop 10/15/16 at 16:46; Status DC Lidocaine/Sodium Bicarbonate (Buffered Lidocaine 1%) 2 ml 1X ONCE IJ ; Start at 17:00; Stop 10/15/16 at 17:01; Status DC Vancomycin HCl 1 each 1 each PRN DAILY PRN MC SEE COMMENTS Last administered on 10/17/16 07:08; Start 10/15/16 at 16:45; Stop 10/18/16 at 10:49; Status DC Meropenem 1 gm/ Sodium Chloride 100 ml @ 200 mls/hr Q8HRS IV Last administered on 10/18/16 05:58; Start 10/16/16 at 00:00; Stop 10/18/16 at 10:49 ; Status DC Vancomycin HCl 2 gm/Sodium Chloride 500 ml @ 250 mls/hr 1X ONCE IV Last administered on 10/15/16 19:00; Start 10/15/16 at 17:00; Stop 10/15/16 at 18:59 ; Status DC Meropenem/Sodium Chloride (Merrem/Iv Sodium Chloride 0.9% 100ml) 100 ml @ 200 mls/hr 1X ONCE IV Last administered on 10/15/16 17:50; Start 10/15/16 at 17: 00; Stop 10/15/16 at 17:29; Status DC Sodium Chloride 10 ml 10 ml STK-MED ONCE .ROUTE ; Start 10/15/16 at 16:47; Stop 10/15/16 at 16:48; Status DC Sodium Chloride (Iv Sodium Chloride 0.9% 1000ml Bag) 1,000 ml @ 1,000 mls/hr 1X ONCE IV ; Start 10/15/16 at 18:15; Stop 10/15/16 at 19:14; Status DC Ondansetron HCl (Zofran) 4 mg PRN Q8HRS PRN IV NAUSEA/VOMITING; Start 10/15/16 at 18:45; Stop 10/16/16 at 18:44; Status DC Morphine Sulfate 4 mg 4 mg PRN Q2HR PRN IV PAIN; Start 10/15/16 at 18:45; Stop 10/16/16 at 00:42; Status DC Sodium Chloride (Iv Sodium Chloride 0.9% 1000ml Bag) 1,000 ml @ 150 mls/hr Q6H40M IV Last administered on 10/16/16 11:03; Start 10/15/16 at 18:37; Stop 10/16/16 at 18:36; Status DC Ibuprofen 600 mg 600 mg PRN Q6HRS PRN PO FEVER > 100.5'F; Start 10/15/16 at 18: 45 Vancomycin HCl/ Sodium Chloride (Iv Sodium Chloride 0.9% 250ml) 250 ml @ 167 mls/hr Q12H IV Last administered on 10/18/16 06:35; Start 10/16/16 at 07:00; Stop 10/18/16 at 10:49; Status DC Vancomycin HCl 1 each 1X ONCE MC Last administered on 10/17/16 06:30; Start 10/17/16 at 06:30; Stop 10/17/16 at 06:31; Status DC Fentanyl (Duragesic 75mcg/ Hr Patch) 1 patch Q3DAYS TD Last administered on 08:51; Start 10/18/16 at 09:00 Fentanyl Citrate (Fentanyl 2ml Vial) 75 mcg PRN Q3HRS PRN IV BREAKTHROUGH PAIN ; Start 10/15/16 at 22:30 Fentanyl (Duragesic 75mcg/ Hr Patch) 1 patch ONCE ONCE TD Last administered on 10/15/16 23:33; Start 10/15/16 at 23:00; Stop 10/15/16 at 23:01; Status DC Prednisone (Prednisone) 5 mg BID PO Last administered on 10/18/16 08:50; Start 10/16/16 at 12:00 Lactobacillus Acidophilus (Bacid, Layla-Bid) 1 tab DAILY PO Last administered on 10/18/16 08:50; Start 10/16/16 at 12:00 Metoclopramide HCl (Reglan) 5 mg TID PRN PRN PO NAUSEA/VOMITING; Start at 11:15 Furosemide (Lasix) 20 mg PRN DAILY PRN PO as needed for swelling; Start at 11:15 Polyethylene Glycol (miraLAX PACKET) 17 gm PRN DAILY PRN PO CONSTIPATION; Start 10/16/16 at 11:15 Vitamin D (Vitamin D3) 5,000 unit DAILY PO Last administered on 10/18/16 08:50 ; Start 10/16/16 at 12:00 Calcium Carbonate/ Glycine (Oscal) 500 mg DAILY PO Last administered on 08:50; Start 10/16/16 at 12:00 Tbo-Filgrastim (Granix) 480 mcg QHS SQ Last administered on 10/17/16 20:16; Start 10/16/16 at 21:00; Stop 10/18/16 at 08:05; Status DC Lisinopril (Prinivil) 10 mg DAILY PO Last administered on 10/18/16 08:50; Start 10/17/16 at 11:30 Oxycodone HCl (Roxicodone) 10 mg PRN Q6HRS PRN PO PAIN Last administered on 06:32; Start 10/18/16 at 06:15 Polyethylene Glycol (miraLAX PACKET) 17 gm BID PO Last administered on 08:51; Start 10/18/16 at 09:00 Potassium Chloride (Klor-Con) 10 meq TIDAFTMEAL PO Last administered on 17:27; Start 10/18/16 at 09:00 Ondansetron HCl (Zofran) 4 mg PRN Q6HRS PRN IV Nausea; Start 10/19/16 at 07:00 ; Stop 10/20/16 at 06:59 Fentanyl Citrate (Fentanyl 2ml Vial) 25 mcg PRN Q5MIN PRN IV MILD PAIN; Start 10/19/16 at 07:00; Stop 10/20/16 at 06:59 Fentanyl Citrate (Fentanyl 2ml Vial) 50 mcg PRN Q5MIN PRN IV MODERATE PAIN; Start 10/19/16 at 07:00; Stop 10/20/16 at 06:59 Morphine Sulfate 1 mg 1 mg PRN Q10MIN PRN IV SEVERE PAIN; Start 10/19/16 at 07: 00; Stop 10/20/16 at 06:59 Lactated Ringer's (Iv Lactated Ringers) 1,000 ml @ 30 mls/hr Q24H IV ; Start at 07:00; Stop 10/19/16 at 18:59 Lidocaine HCl 2 ml 1X PRN PRN ID IV START; Start 10/19/16 at 07:00; Stop at 06:59 Hydromorphone HCl (Dilaudid) 0.5 mg PRN Q10MIN PRN IV SEVERE PAIN, Second choice; Start 10/19/16 at 07:00; Stop 10/20/16 at 06:59 Active Scripts Active [Polyethylene Glycol 3350] 17 GM Packet 17 Gm PO BID Reported Oxycodone Hcl 10 Mg Tablet 10 Mg PO PRN Q4HRS PRN FENTANYL 75mcg/hr (Fentanyl) 1 Each Patch.td72 75 Mcg TD Q3DAYS Prednisone 5 Mg Tablet 5 Mg BID Dexamethasone 4 Mg Tablet Furosemide 20 Mg Tablet 20 Mg PO DAILY Lisinopril 10 Mg Tablet 10 Mg PO DAILY Metoclopramide Hcl 5 Mg Tablet 5 Mg PO TID PRN PRN [floragen probiotic] PO DAILY 30 Days Clindamycin Hcl 300 Mg Capsule 300 Mg PO TID 7 Days Oxycontin (Oxycodone HCl) 40 Mg Tab.er.12h 40 Mg PO BID Calcium 600 + Vit D 200 Tablet (Calcium Carbonate/Vitamin D3) 1 Each Tablet 1 Each PO DAILY Vitamin D (Cholecalciferol (Vitamin D3)) 2,000 Unit Capsule 5,000 Unit PO DAILY Xgeva (Denosumab) 120 Mg/1.7 Ml Vial 120 Mg SQ Q4WK Lupron Depot (Leuprolide Acetate) 11.25 Mg Syringekit 11.25 Mg IM Allergies Allergies: Coded Allergies: acetaminophen (Unverified Allergy, Intermediate, redness and itching, 9/6/ 16) Vitals VITALS Vital Signs Date Time Temp Pulse Resp B/P Pulse Ox O2 Delivery O2 Flow Rate FiO2 10/18/16 15:00 98.2 75 18 129/74 97 Room Air 98.2 Labs Labs Laboratory Tests Test 10/17/16 06:00 10/18/16 05:55 White Blood Count 1.3x10^3/uL (4.0-11.0) 8.2x10^3/uL (4.0-11.0) Red Blood Count 2.70x10^6/uL (4.30-5.70) 2.85x10^6/uL (4.30-5.70) Hemoglobin 8.3g/dL (13.0-17.5) 8.6g/dL (13.0-17.5) Hematocrit 23.2% (39.0-53.0) 24.6% (39.0-53.0) Mean Corpuscular Volume 86fL (79-100) 87fL (79-100) Mean Corpuscular Hemoglobin 31pg (25-35) 30pg (25-35) Mean Corpuscular Hemoglobin Concent 36g/dL (31-37) 35g/dL (31-37) Red Cell Distribution Width 14.5% (11.5-14.5) 14.7% (11.5-14.5) Platelet Count 99x10^3/uL (140-400) 117x10^3/uL (140-400) Neutrophils (%) (Auto) 32% (31-73) 70% (31-73) Lymphocytes (%) (Auto) 32% (24-48) 13% (24-48) Monocytes (%) (Auto) 36% (0-9) 17% (0-9) Eosinophils (%) (Auto) 0% (0-3) 0% (0-3) Basophils (%) (Auto) 1% (0-3) 0% (0-3) Neutrophils # (Auto) 0.4x10^3uL (1.8-7.7) 5.7x10^3uL (1.8-7.7) Lymphocytes # (Auto) 0.4x10^3/uL (1.0-4.8) 1.1x10^3/uL (1.0-4.8) Monocytes # (Auto) 0.5x10^3/uL (0.0-1.1) 1.4x10^3/uL (0.0-1.1) Eosinophils # (Auto) 0.0x10^3/uL (0.0-0.7) 0.0x10^3/uL (0.0-0.7) Basophils # (Auto) 0.0x10^3/uL (0.0-0.2) 0.0x10^3/uL (0.0-0.2) Segmented Neutrophils % 4% (35-66) 5% (35-66) Band Neutrophils % 16% (0-9) 32% (0-9) Lymphocytes % 45% (24-48) 13% (24-48) Atypical Lymphocytes % (Manual) 4% (0-0) 1% (0-0) Monocytes % 18% (0-10) 15% (0-10) Metamyelocytes % 2% (0-0) 8% (0-0) Myelocytes % 6% (0-0) 16% (0-0) Promyelocytes % 4% (0-0) 4% (0-0) Nucleated Red Blood Cells 1 2 Platelet Estimate Decreased (ADEQUATE) Decreased (ADEQUATE) Large Platelets Present Polychromasia Slight Basophilic Stippling Present Anisocytosis Slight Slight Vancomycin Level Trough 16.8mcg/mL (10.0-20.0) Vancomycin Last Dose Date 10/16/16 Vancomycin Last Dose Time 1900 Eosinophils % 1% (0-5) Basophils % 1% (0-3) Blast Cells % (Manual) 2% (0-0) Other Cells % % (0-0) Toxic Granulation Present Dohle Bodies Present Sodium Level 144mmol/L (136-145) Potassium Level 3.3mmol/L (3.5-5.1) Chloride Level 109mmol/L (98-107) Carbon Dioxide Level 28mmol/L (21-32) Anion Gap 7 (6-14) Blood Urea Nitrogen 13mg/dL (8-26) Creatinine 0.9mg/dL (0.7-1.3) Estimated GFR (Cockcroft-Gault) 84.4 BUN/Creatinine Ratio 14 (6-20) Glucose Level 88mg/dL (70-99) Calcium Level 8.3mg/dL (8.5-10.1) Total Bilirubin 0.5mg/dL (0.2-1.0) Aspartate Amino Transf (AST/SGOT) 38U/L (15-37) Alanine Aminotransferase (ALT/SGPT) 25U/L (16-63) Alkaline Phosphatase 80U/L (46-116) Total Protein 5.0g/dL (6.4-8.2) Albumin 2.2g/dL (3.4-5.0) Albumin/Globulin Ratio 0.8 (1.0-1.7) Laboratory Tests Test 10/18/16 05:55 White Blood Count 8.2x10^3/uL (4.0-11.0) Red Blood Count 2.85x10^6/uL (4.30-5.70) Hemoglobin 8.6g/dL (13.0-17.5) Hematocrit 24.6% (39.0-53.0) Mean Corpuscular Volume 87fL (79-100) Mean Corpuscular Hemoglobin 30pg (25-35) Mean Corpuscular Hemoglobin Concent 35g/dL (31-37) Red Cell Distribution Width 14.7% (11.5-14.5) Platelet Count 117x10^3/uL (140-400) Neutrophils (%) (Auto) 70% (31-73) Lymphocytes (%) (Auto) 13% (24-48) Monocytes (%) (Auto) 17% (0-9) Eosinophils (%) (Auto) 0% (0-3) Basophils (%) (Auto) 0% (0-3) Neutrophils # (Auto) 5.7x10^3uL (1.8-7.7) Lymphocytes # (Auto) 1.1x10^3/uL (1.0-4.8) Monocytes # (Auto) 1.4x10^3/uL (0.0-1.1) Eosinophils # (Auto) 0.0x10^3/uL (0.0-0.7) Basophils # (Auto) 0.0x10^3/uL (0.0-0.2) Segmented Neutrophils % 5% (35-66) Band Neutrophils % 32% (0-9) Lymphocytes % 13% (24-48) Atypical Lymphocytes % (Manual) 1% (0-0) Monocytes % 15% (0-10) Eosinophils % 1% (0-5) Basophils % 1% (0-3) Metamyelocytes % 8% (0-0) Myelocytes % 16% (0-0) Promyelocytes % 4% (0-0) Blast Cells % (Manual) 2% (0-0) Other Cells % % (0-0) Nucleated Red Blood Cells 2 Toxic Granulation Present Dohle Bodies Present Platelet Estimate Decreased (ADEQUATE) Anisocytosis Slight Sodium Level 144mmol/L (136-145) Potassium Level 3.3mmol/L (3.5-5.1) Chloride Level 109mmol/L (98-107) Carbon Dioxide Level 28mmol/L (21-32) Anion Gap 7 (6-14) Blood Urea Nitrogen 13mg/dL (8-26) Creatinine 0.9mg/dL (0.7-1.3) Estimated GFR (Cockcroft-Gault) 84.4 BUN/Creatinine Ratio 14 (6-20) Glucose Level 88mg/dL (70-99) Calcium Level 8.3mg/dL (8.5-10.1) Total Bilirubin 0.5mg/dL (0.2-1.0) Aspartate Amino Transf (AST/SGOT) 38U/L (15-37) Alanine Aminotransferase (ALT/SGPT) 25U/L (16-63) Alkaline Phosphatase 80U/L (46-116) Total Protein 5.0g/dL (6.4-8.2) Albumin 2.2g/dL (3.4-5.0) Albumin/Globulin Ratio 0.8 (1.0-1.7) Assessment/Plan Assessment/Plan FND Wk # [id number] To OR in AM for biopsy. Thanks for consult! NIKOLAS LEACH MD Oct 18, 2016 17:47
[2016-10-18 19:00] VITALS: BP 151/80
--- NOTE | 2016-10-18 19:59 | CONS ---
DATE OF CONSULTATION: 10/18/2016 HISTORY OF PRESENT ILLNESS: The patient is a 66-year-old gentleman who is undergoing chemotherapy for metastatic prostate cancer. He was admitted 3 days ago through the Emergency Department with neutropenia and malaise. He has a history of some skin lesions on the left groin for the last couple of months. We were asked to see him for a biopsy to establish whether these are cutaneous metastasis or other process. PAST SURGICAL HISTORY: He has had placement of ureteral stents bilaterally. PAST MEDICAL HISTORY: Prostate cancer with bone metastasis, renal metastasis and resultant urinary retention. Osteoarthritis, back pain, hypertension. ALLERGIES: Listed ACETAMINOPHEN. ROUTINE MEDICATIONS: Listed on reconciliation sheet. FAMILY HISTORY: Positive for diabetes, rheumatoid arthritis, cancer. SOCIAL HISTORY: He is a nonsmoker who does not use alcohol. REVIEW OF SYSTEMS: GENERAL: Has presented with fevers and chills with easy fatigability. HEENT: No recent sore throat or earaches. RESPIRATORY: No cough or shortness of breath. CARDIOVASCULAR: No chest pain or palpitations. GASTROINTESTINAL: No nausea, vomiting, or diarrhea. GENITOURINARY: Increased urinary frequency and some hesitation. NEUROLOGIC: No recent headaches or visual changes. OBJECTIVE: PHYSICAL EXAMINATION: GENERAL: Reveals a chronic ill-appearing gentleman who is awake, alert and oriented and in no acute distress. VITAL SIGNS: At the time of exam, he is afebrile at 97.9, heart rate 72, blood pressure 141/70. HEENT: He is normocephalic with some alopecia. NECK: Supple. LUNGS: Clear. HEART: Has regular rate and rhythm. ABDOMEN: Belly is soft. GENITAL AND RECTAL: Deferred. In the left groin are several violaceous skin lesions. These are at various stages of progression. At the base of the scrotum on the left side is a large skin process with some drainage, suggesting possible abscess. EXTREMITIES: Showed no gross skeletal abnormalities. NEUROLOGIC: He is grossly intact. LABORATORY DATA: Today shows a white count of 8200 up from 1300 on yesterday. Chemistries today show a mild hypokalemia at 3.3. IMPRESSION: Metastatic prostate cancer, now with skin lesions in the left groin and base of the scrotum. PLAN: We will schedule for biopsy of the skin lesions. I discussed the procedure with the patient's with risks including but not limited to bleeding or infection. Also, the possible presence of chronic nonhealing wound. He understands and will proceed. Thank you for asking me to see this nice gentleman and participate in his care. We will follow him with you as needed during his hospitalization. NIKOLAS LEACH MD DR: ESTEFANIA/ivon JOB#: [id number] / [id number]
[2016-10-18 23:00] VITALS: BP 124/64
[2016-10-19] VITALS (14 sets, daily range): BP systolic 106–161; BP diastolic 60–96
[2016-10-19] MEDS ORDERED: IV RINGERS,LACTATED 1000ML 1,000 ML IV SCH (07:00)
[2016-10-19] MEDS ORDERED: LIDOCAINE 1% 1 ML SYRINGE. ID PRN (07:00)
[2016-10-19] MEDS ORDERED: FENTANYL PF 100 MCG/2 ML VIAL. IV PRN ×2 (07:00)
[2016-10-19] MEDS ORDERED: HYDROMORPHONE 2 MG/ML VIAL. IV PRN (07:00)
[2016-10-19] MEDS ORDERED: ONDANSETRON PF 4 MG/2 ML VIAL. IV PRN (07:00)
[2016-10-19] MEDS ORDERED: MORPHINE SULFATE 2 MG/ML DISP.SYRIN. IV PRN (07:00)
--- NOTE | 2016-10-19 07:57 | PDOC ---
Provider Note Provider Note no more temp, no new labs- feels ok- off iv meds now , groin bx then can dc if all ok HUNTER COTTON MD Oct 19, 2016 07:57
[2016-10-19] MEDS ORDERED: CEFAZOLIN 2GM PREMIX 50 ML IV ONE ×2 (09:43→09:45)
[2016-10-19] MEDS ORDERED: LIDOCAINE 2% 100 MG/5 ML DISP.SYRIN. ONE (09:50)
[2016-10-19] MEDS ORDERED: ONDANSETRON PF 4 MG/2 ML VIAL. ONE (09:50)
[2016-10-19] MEDS ORDERED: PROPOFOL 20 ML IV ONE (09:50)
[2016-10-19] MEDS ORDERED: FENTANYL PF 100 MCG/2 ML VIAL. ONE (09:50)
[2016-10-19] MEDS ORDERED: DEXAMETHASONE SOD PHOS 20 MG/5 ML VIAL. ONE (09:50)
[2016-10-19] MEDS ORDERED: BUPIVAC MPF-EPI 0.5%-1:200000 30 ML VIAL. ONE (09:52)
[2016-10-19] MEDS ORDERED: NEOMY/BACITR/POLYMYXIN OINT PACKET. TP ONE (10:31)
[2016-10-19] MEDS ORDERED: PHENYLEPHRINE in 0.9% NACL PF 1 MG/10 ML DISP.SYRIN. IV ONE (10:37)
--- NOTE | 2016-10-19 11:34 | PDOC ---
BRIEF OPERATIVE NOTE Date: Oct 19, 2016 Pre-Op Diagnosis skin nodules left groin with hx of metastatic prostate cancer Post-Op Diagnosis same Procedure Performed excision nodule left groin Surgeon Casper Anesthesia Type: General Blood Loss <5cc IV Fluid 400cc Specimens Obtained skin and nodule left groin at base of scrotum, 4x2x1.5 cm Findings fleshy nodule with superficial ulceration 2/2 to friction Complications none Additional Remarks Wk #[id number] NIKOLAS LEACH MD Oct 19, 2016 11:34
[2016-10-19] MEDS: LACTOBACILLUS ACIDOPH & BULGAR 1 TABLET. PO SCH (13:56)
[2016-10-19] MEDS: CHOLECALCIFEROL (VITAMIN D3) 5,000 UNIT CAPSULE PO SCH (13:56)
[2016-10-19] MEDS: LISINOPRIL 10 MG TABLET PO SCH (13:56)
[2016-10-19] MEDS: CALCIUM CARBONATE 500 MG TABLET PO SCH (13:56)
[2016-10-19] MEDS: PREDNISONE 5 MG TABLET PO SCH ×2 (13:57→20:36)
[2016-10-19] MEDS: POLYETHYLENE GLYCOL 3350 17 GM PACKET. PO SCH ×2 (13:57→20:34)
--- NOTE | 2016-10-19 15:58 | OP ---
DATE OF SURGERY: PREOPERATIVE DIAGNOSIS: Skin nodules, left groin with history of metastatic prostate cancer. POSTOPERATIVE DIAGNOSIS: Skin nodules, left groin with history of metastatic prostate cancer. PROCEDURE: Excision of skin nodule, left groin at the base of the scrotum. SURGEON: Eleno Leach MD ANESTHESIA: General. ESTIMATED BLOOD LOSS: Less than 5 mL. IV FLUID: 400 mL. SPECIMENS: Skin and nodule, left groin at the bases scrotum that was 4 x 2 x 1.5 cm. DESCRIPTION OF PROCEDURE: The patient was brought to operating suite and given a general LMA. The left groin and scrotum were prepped and draped in usual sterile fashion. The largest of the nodules in the left groin resided at the base of the scrotum and this was chosen for excision. An elliptical skin incision around the base of the process was infiltrated with local anesthetic, sharply incised and the specimen removed intact. Hemostasis obtained with cautery. Wound was irrigated with normal saline and checked again for hemostasis. When present, it was closed with interrupted sutures of 4-0 nylon. Sterile dressing applied. The patient taken out of the lithotomy position, awakened from his anesthetic and taken to the recovery room in satisfactory condition. ELENO LEACH MD DR: ESTEFANIA/ivon JOB#: [id number] / [id number] MUNA Church DAVID MD
[2016-10-20 03:08] VITALS: BP 152/77
[2016-10-20] MEDS: OXYCODONE IR 5 MG TABLET. PO PRN (03:39)
[2016-10-20 07:30] VITALS: BP 148/69
--- NOTE | 2016-10-20 07:53 | DISCH ---
DISCHARGE INSTRUCTIONS Condition on Discharge Condition on Discharge: Stable Activity After Discharge Activity Instructions for Disc: No restrictions Diet after Discharge Diet after Discharge: Regular Follow-Up Follow up with: per surgery HUNTER COTTON MD Oct 20, 2016 07:53
--- NOTE | 2016-10-20 07:56 | PDOC ---
Provider Note Provider Note [id number] HUNTER COTTON MD Oct 20, 2016 07:56
[2016-10-20] MEDS: POLYETHYLENE GLYCOL 3350 17 GM PACKET. PO SCH (09:00)
[2016-10-20] MEDS: LACTOBACILLUS ACIDOPH & BULGAR 1 TABLET. PO SCH (09:46)
[2016-10-20] MEDS: CALCIUM CARBONATE 500 MG TABLET PO SCH (09:47)
[2016-10-20] MEDS: CHOLECALCIFEROL (VITAMIN D3) 5,000 UNIT CAPSULE PO SCH (09:47)
[2016-10-20] MEDS: PREDNISONE 5 MG TABLET PO SCH (09:47)
[2016-10-20] MEDS: LISINOPRIL 10 MG TABLET PO SCH (09:52)
--- NOTE | 2016-10-20 10:05 | PDOC ---
Infectious Disease Note Subjective Subjective feeling good, no fever ROS ROS GEN: Denies fevers, chills, sweats HEENT: Denies blurred vision, sore throat CV: Denies chest pain RESP: Denies shortness of air, cough GI: Denies n/v/d NEURO: Denies confusion, dizziness MSK: Denies weakness, joint pain/swelling Vital Sign Vital Signs Vital Signs Date Time Temp Pulse Resp B/P Pulse Ox O2 Delivery O2 Flow Rate FiO2 10/20/16 09:52 67 148/69 10/20/16 07:30 98.1 18 94 Room Air 98.1 10/19/16 11:00 10 Physical Exam PHYSICAL EXAM GENERAL: NAD, Alert HEENT: PERRL, OC/OP NECK: Supple, no JVD, no LN LUNGS: Clear HEART: S1S2, no gallop, no murmur ABD: Soft, NT, no organomegaly, no rebound EXT: No edema, no cyanosis RECOVERY COLLECTOR: Alert, oriented x 3, no focal neurologic deficit SKIN: No rash IV: ok Objective Assessment Sepsis with lactic acidosis. POA Neutropenic fever Nodules left groin. Abscess vs metastatic disease -Seven day course of clindamycin, 2 weeks ago, minimal improvement, now worse Met adenocarcinoma of prostate -s/p chemo on 10/06. = steroids -s/p port-a-cath placement, 10/01 h/o bilat hydronephrosis s/p stent Plan Plan of Care biopsy of groin growth done NGTD d/c home ok biopsy followup with Dr Davies, will be happy to see if they need ( if infection) ROB JOHN MD Oct 20, 2016 10:05
[2016-10-20] MEDS ORDERED: HEPARIN PF 500 UNIT/5 ML DISP.SYRIN. IV ONE (11:00)
[2016-10-20 11:16] VITALS: BP 147/67
--- NOTE | 2016-10-20 15:18 | DS ---
DATE OF DISCHARGE: 10/20/2016 HOSPITAL SUMMARY: A 66-year-old white male undergoing recent chemotherapy for progressive metastatic adenocarcinoma of the prostate, came in with fever, weakness and general malaise. Physical exam showed some draining nodules in the left inguinal area, which have been present for a few weeks, not responded to oral antibiotics. Chemistry profile was unremarkable except for low albumin of 2.2. White count was initially only 400 with 5% neutrophils, went up to 1300 two days later and then after Neupogen, was up to 8200. Hemoglobin stable at 8.6. Platelets were low 110,000, but improving. Blood cultures had no growth. Chest x-ray was clear. He was treated with IV vancomycin and Merrem for 2-3 days until fever subsided and white count came up and no further fever were demonstrated and the antibiotics were discontinued. He underwent left groin nodule biopsies per Dr. Shirley on the day prior to dismissal. Final pathology report is pending at this time. He is afebrile. Vitals stable. He is able to be followed as an outpatient at this point. FINAL DIAGNOSES: 1. Febrile neutropenia secondary to recent chemotherapy. 2. Anemia and thrombocytopenia secondary to metastatic adenocarcinoma of the prostate. OPERATIONS AND PROCEDURES: Groin nodule excisional biopsy. COMPLICATIONS: None. CONSULTATIONS: Dr. Lan Oconnell, Dr. Shirley, Dr. Mariah Davies. DISPOSITION: Home meds remain the same for now. Further chemotherapy as scheduled and pathology reports per Dr. Shirley's biopsy pending at this time. Prognosis is guarded because of the progressive nature of his metastatic disease. HUNTER COTTON MD DR: EVA/nts JOB#: [id number] / [id number]
--- NOTE | 2016-10-21 13:01 | PATHOLOGY ---
PATHOLOGY REPORT * * * * * * * * FINAL DIAGNOSIS: Skin and subcutaneous tissue, left groin mass: - METASTATIC POORLY DIFFERENTIATED ADENOCARCINOMA HAVING IMMUNOPHENOTYPIC FEATURES CONSISTENT WITH METASTATIC POORLY DIFFERENTIATED PROSTATIC ADENOCARCINOMA. SEE COMMENT. COMMENT: Sections of the left groin mass reveal an ulcerated polypoid skin lesion. The lesion is comprised of a malignant epithelial neoplasm which extensively involves the dermis and focally ulcerates the epidermis. The neoplasm is composed of solid nests of malignant cells. The malignant cells have ample amounts of eosinophilic cytoplasm, and possess enlarged, rounded to ovoid nuclei containing prominent nuclei. There is focal marked nuclear pleomorphism. Mitotic figures are readily demonstrated. Outside the area of ulceration, there is a zone of dermis the tumor from the overlying epidermis. There is a single focus of lymphovascular tumor invasion within the subcutaneous tissue. The tumor is close (within 1 mm) to the deep margin of resection. A panel of immunohistochemical stain is obtained and yields the following results: Cytokeratin 7 (A2): few scattered tumor cells positive Cytokeratin 20 (A2): rare tumor cells positive P40 (A2): tumor cells negative PSA (A2): tumor cells positive PSAP (A2): tumor cells positive TTF-1 (A2): tumor cells focally positive The morphologic and immunophenotypic findings are supportive of the diagnosis of metastatic poorly differentiated prostatic adenocarcinoma. The case is also examined by Dr. Rice, who concurs with the diagnosis. (JPM:all; d/t: 10/20-10/2016) Special stains performed: immunoperoxidase stains for cytokeratin 7, cytokeratin 20, p40, PSA, PSAP, TTF-1 REPORT ELECTRONICALLY SIGNED BY: Ko Jefferson M.D. DATE/TIME: 10/21/2016 13:01 * * * * * * * * GROSS PATHOLOGY: The specimen is received fresh for intraoperative consultation and is designated "left groin mass." This consists of an ellipse of wrinkled swann skin and yellow subcutaneous tissue, measuring up to 3.3 x 1.8 x 0.5 cm. There is an exophytic polypoid lesion of the skin surface measuring up to 3.5 x 1.9 x 1.7 cm. The nodule is elizondo to focal purplish in appearance and is superficially ulcerated. The margins of the skin ellipse are inked with black ink. On sectioning, the mass has a pinkish swann fleshy to hemorrhagic softened appearance. A financial representative portion is submitted for frozen section as FSA1. The tissue remaining from frozen section is submitted for permanent sections as A1. Additional cross-sections of the lesion are submitted as A2 and A3. Sections to the end points of the ellipse are submitted as A4 and A5. (JPM:mgr; d/t: 10/19/16) FROZEN SECTION DIAGNOSIS: (Katherine Jefferson M.D.) Skin and subcutaneous tissue, left groin mass excision: - ULCERATED CARCINOMA, FAVOR METASTATIC. The results are reported to Dr. Shirley in the pathology area. (JPM:mgr; d/t: 10/19/16) Testing performed by [facility] [place] [address] INITIAL CPT CODE(S): A; 18395, 89953, 53448, 98695, 99274, 42394, 13232, 19665 Professional services performed by [facility] [place] [address] Technical services performed by [facility] at [address] [place] [address]. SPECIMEN(S) RECEIVED: A.Left groin mass CLINICAL HISTORY: Left groin mass, history of metastatic prostate cancer PATIENT: VASQUEZ KENDALL /AGE: 11 1950 (Age: 66) PATIENT #: [id number] ALT CASE #: SPECIMEN COLLECTION DATE: 10/19/2016 SPECIMEN RECEIVED DATE: 10/19/2016 [facility] - [id number] [place] [address] - PHONE: [phone] * * * END OF REPORT * * *
--- NOTE | 2016-10-27 00:08 | HP ---
ADMIT DATE: The patient is coming sometime in the next month for cystoscopy, retrograde pyelogram and bilateral stent change. This will be his H and P. CHIEF COMPLAINT: Bilateral ureteral obstruction, in for stent change. INDICATIONS: The patient is a very pleasant 66-year-old white male with history of metastatic prostate cancer and bilateral ureteral obstruction with bilateral ureteral stents in place. The patient has undergone previous cystoscopy, retrograde pyelograms and stenting. The patient now to undergo cystoscopy, bilateral retrograde pyelograms and bilateral ureteral stent change. I have discussed with the patient the options, alternatives, benefits, risks and possible complications of the procedure with him. He understands this and does wish to proceed with operation. PAST MEDICAL HISTORY: Significant for metastatic prostate cancer. The patient is on chemotherapy per Dr. Davies of oncology. ALLERGIES: The patient has no known drug allergies. REVIEW OF SYSTEMS: The patient has skin metastases that are new. PHYSICAL EXAMINATION: GENERAL: The patient is a cachectic appearing white male in no acute distress. HEENT: Normocephalic, atraumatic. NECK: Supple. CHEST: Clear to auscultation. CARDIOVASCULAR: Regular rate and rhythm. ABDOMEN: Soft, nontender. GENITOURINARY: Testes are atrophic. The patient has skin metastases in the groin area. Phallus within normal limits. RECTAL: Good sphincter tone. Prostate smooth without nodules, overall size 20 grams. NEUROLOGIC: Grossly intact. ASSESSMENT: Bilateral ureteral obstruction with ureteral stents in place. PLAN: Cystoscopy, bilateral retrograde pyelograms and bilateral ureteral stent change. BRODY SHERMAN MD DR: RAYRAY/ivon JOB#: [id number] / [id number]
== END 2016-10-20 12:13 | disposition home or self-care (01) | DRG 871 ==
LOC: ER 16:02 → 5 SOUTH 18:30
PROVIDERS: ADMIT Family Medicine; ATTEND Family Medicine
PROC: 0VB Male Reproductive System, Excision (ICD-10-PCS; principal; 2016-10-19 10:00)
DX: A41.9 Sepsis, unspecified organism (principal); D61.810 Antineoplastic chemotherapy induced pancytopenia; E87.2 Acidosis; C79.2 Secondary malignant neoplasm of skin; C79.00 Secondary malignant neoplasm of unspecified kidney and renal pelvis; C79.51 Secondary malignant neoplasm of bone; L02.214 Cutaneous abscess of groin; E44.1 Mild protein-calorie malnutrition; D70.1 Agranulocytosis secondary to cancer chemotherapy; T45.1X5A Adverse effect of antineoplastic and immunosuppressive drugs, initial encounter; Z85.46 Personal history of malignant neoplasm of prostate; C61 Malignant neoplasm of prostate; D64.9 Anemia, unspecified; D69.59 Other secondary thrombocytopenia; I10 Essential (primary) hypertension; Z83.3 Family history of diabetes mellitus; Z98.890 Other specified postprocedural states; Z80.9 Family history of malignant neoplasm, unspecified; Z82.69 Family history of other diseases of the musculoskeletal system and connective tissue; Z88.8 Allergy status to other drugs, medicaments and biological substances; Z79.899 Other long term (current) drug therapy; Z68.27 Body mass index [BMI] 27.0-27.9, adult
CPT/HCPCS: 36415; 71010; 80053; 80202; 81001; 83605; 83690; 85007; 85027; 85610; 87040; 88305; 88331; 88341; 88342; 96365; C1769; J0690; J1100; J1442; J2185; J2370; J2405; J2704; J3010; J3370; J3490; J7030; J7040; J7050; J7120; J7512; 99285-25; G0641